=== PATIENT | male | born 1960 | race Caucasian/White ===

== ENCOUNTER → 2022-03-17 | Outpatient (CLI) | payer MEDICARE, SELFPAY ==
[2022-03-17 13:00] VITALS: PULSE 100; PULSE 80; PULSE 83; PULSE 92; PULSE 94; PULSE 97; PULSE 98; O2SAT 86; O2SAT 88; O2SAT 90; O2SAT 91; O2SAT 96; O2SAT 97; O2SAT 98
--- NOTE | 2022-03-17 13:05 | CPS ---
PATIENT STATES HE HAS OXYGEN AT HOME CURRENTLY FOR USE WITH SLEEP THROUGH [facility]. WALK TESTING BEGAN ON ROOM AIR. OXYGEN APPLIED AT 2LPM DURING TESTING, REMAINED ON 2LPM FOR DURATION OF TESTING. PT DID EXPERIENCE INCREASED WOB THROUGHOUT TESTING, CYANOSIS NOTED ON TIP OF PT NOSE WITH DECREASE SPO2 TO 86% RA, AT WHICH TIME HE WAS PLACED ON O2. REFERRING OFFICE NOTIFIED OF PT NEED FOR SUPPLEMENTAL O2 WITH AMBULATION.
--- NOTE | 2022-03-17 14:00 | PCM.PSN.6M ---
PSN 6 Minute Walk Test 6 Minute Walk Test 6 Minute Walk Test: 6 Minute Walk Test PSN:6-Minute Walk Test Start: 03/17/22 13:00 Freq: Status: Active Protocol: [id number] Document 03/17/22 13:00 [facility] (Rec: 03/17/22 13:08 [facility] [id number]) 6 Minute Walk Test Date Performed 03/17/22 Time Performed 12:30 Height 5 ft 7 in Weight: 47.627 kg Weight in Pounds 105.[address]: Yinka Villeda Assistive device used: None Pre-test Oxygen Delivery Method Room Air Pulse Ox (%) 91 Pulse Rate (60-100 beats/min) 83 Dyspnea James Scale (0-10) 0 1st minute Oxygen Delivery Method Room Air Pulse Ox (%) 90 Pulse Rate (60-100 beats/min) 98 Dyspnea James Scale (0-10) 1 Number of Rests Taken 0 2nd minute Oxygen Delivery Method Room Air Pulse Ox (%) 88 Pulse Rate (60-100 beats/min) 100 Dyspnea James Scale (0-10) 2 Number of Rests Taken 0 Reported Symptoms Increased Work of Breathing 3rd minute Oxygen Delivery Method Room Air Pulse Ox (%) 86 Pulse Rate (60-100 beats/min) 97 Dyspnea James Scale (0-10) 3 Number of Rests Taken 1 Reported Symptoms Cyanotic,Increased Work of Breathing 4th minute Oxygen Flow Rate (L/min) (L/min) 2 Oxygen Delivery Method Nasal Cannula Pulse Ox (%) 96 Pulse Rate (60-100 beats/min) 92 Dyspnea James Scale (0-10) 3 Number of Rests Taken 0 Reported Symptoms Increased Work of Breathing 5th minute Oxygen Flow Rate (L/min) (L/min) 2 Oxygen Delivery Method Nasal Cannula Pulse Ox (%) 96 Pulse Rate (60-100 beats/min) 94 Dyspnea James Scale (0-10) 3 Number of Rests Taken 0 Reported Symptoms Increased Work of Breathing 6th minute Oxygen Flow Rate (L/min) (L/min) 2 Oxygen Delivery Method Nasal Cannula Pulse Ox (%) 97 Pulse Rate (60-100 beats/min) 97 Dyspnea James Scale (0-10) 3 Number of Rests Taken 0 Reported Symptoms Increased Work of Breathing Post-test Oxygen Flow Rate (L/min) (L/min) 2 Oxygen Delivery Method Nasal Cannula Pulse Ox (%) 98 Pulse Rate (60-100 beats/min) 80 Dyspnea James Scale (0-10) 2 Reported Symptoms Increased Work of Breathing Full Laps Walked 13 Partial Lap, Number of Tiles Walked 17 Total Distance Walked (ft) 784 03/17/22 13:05 Cardiopulmonary Services by Hilda Grace PATIENT STATES HE HAS OXYGEN AT HOME CURRENTLY FOR USE WITH SLEEP THROUGH [facility]. WALK TESTING BEGAN ON ROOM AIR. OXYGEN APPLIED AT 2LPM DURING TESTING, REMAINED ON 2LPM FOR DURATION OF TESTING. PT DID EXPERIENCE INCREASED WOB THROUGHOUT TESTING, CYANOSIS NOTED ON TIP OF PT NOSE WITH DECREASE SPO2 TO 86% RA, AT WHICH TIME HE WAS PLACED ON O2. REFERRING OFFICE NOTIFIED OF PT NEED FOR SUPPLEMENTAL O2 WITH AMBULATION. Initialized on 03/17/22 13:05 - END OF NOTE Interpretation Interpretation: The patient was noted to be 91% on room air at rest. However, patient desaturated to 86% in the third minute and was placed on 2 L/min. The patient required 2 L to continue ambulation for a total of 6 minutes. In total, the patient traveled 784 feet over the course of 6 minutes with no assistive devices, but 1 break. No significant tachycardia was noted. These findings are consistent with a respiratory limitation exercise tolerance. Recommendations Recommendations: The patient requires no supplemental oxygen at rest, but should be using 2 L/min nasal cannula with any exertion.
== END | disposition home or self-care (01) ==
LOC: PSN 12:22
PROVIDERS: Visit Provider Internal Medicine Critical Care Medicine
DX: F17.210 Nicotine dependence, cigarettes, uncomplicated (principal)
CPT/HCPCS: 94618

== ENCOUNTER → 2022-03-22 | Outpatient (CLI) | payer MEDICARE, MEDICAID, SELFPAY ==
--- NOTE | 2022-03-24 09:46 | PFT ---
INTRODUCTION: The patient is a 61-year-old male that presents for pulmonary function studies secondary to a diagnosis of nicotine dependency. Respiratory therapy reported good patient effort. Bronchodilators were used during testing. INTERPRETATION: Forced expiration spirometry demonstrates the presence of a very severe large airways obstructive ventilatory defect. There was no significant response to aerosolized bronchodilators. Spirograms are of fair quality but do not plateau indicating slow emptying of the lungs. Body plus tomography was performed and revealed an elevated RV to 126% of predicted, indicative of underlying air trapping. Diffusing capacity by single breath CO is reduced at 53% of predicted. IMPRESSION: Irreversible very severe large airways obstructive ventilatory defect with associated air trapping and symmetric reduction in diffusing capacity.
== END | disposition home or self-care (01) ==
PROVIDERS: Visit Provider Internal Medicine Critical Care Medicine
DX: F17.210 Nicotine dependence, cigarettes, uncomplicated (principal)
CPT/HCPCS: 94060; 94726; 94729

== ENCOUNTER → 2022-08-05 | Outpatient (CLI) | payer MEDICARE, MEDICAID, SELFPAY ==
--- NOTE | 2022-08-05 14:44 | CT_ITS ---
EXAM: CT CHEST WITHOUT INTRAVENOUS CONTRAST CLINICAL INDICATION: Lung Nodule TECHNIQUE: Helically acquired images were obtained of the chest without intravenous contrast. This CT exam was performed using one or more of the following dose reduction techniques: automated exposure control, adjustment of the mA and/or kV according to patient size, and/or use of iterative reconstruction technique. RADIATION DOSE: Total DLP: 192.45 mGy-cm. COMPARISON: No relevant prior studies available. FINDINGS: LUNGS AND PLEURAL SPACES: Severe bilateral pulmonary emphysema is present with hyperinflation of lungs lobe and flattening of the hemidiaphragms. Within the right lower lobe laterally is 5.3 x 2.8 x 6.6 mm ovoid noncalcified subpleural nodule. Calcified granuloma noted within the right upper lobe parahilar region. No patchy airspace disease. No pneumothorax or pleural effusion. Minimal bilateral peribronchial cuffing is present indicating bronchial wall inflammation. HEART: Moderate coronary artery calcification is present. No significant pericardial effusion. Pruning of the peripheral pulmonary vascular markings due to pulmonary emphysema. MEDIASTINUM: Unremarkable. Esophagus is unremarkable. No hiatal hernia. No mediastinal adenopathy. THYROID: Unremarkable. No thyroid lesions. BONES/JOINTS: Thoracic degenerative spurring. Mild anterior wedging of the T12 vertebral body due to old compression fracture or congenital variant at this level. No acute osseous abnormality. No suspicious lytic or blastic abnormality. VASCULATURE: Thoracic aorta is mildly calcific and is normal in caliber. No aneurysm or intimal calcification is placement. INTRAPERITONEAL SPACE: Visualized portions of the liver, spleen and pancreas are unremarkable. No adrenal nodule is identified. Simple renal cysts are present and require no follow-up. 2.5 mm nonobstructing calculus noted within the upper pole collecting system of the right kidney. No pneumoperitoneum is noted. CT/Chest without Contrast IMPRESSION: Findings of severe pulmonary emphysema with mild associated bronchitis. No pneumonia. 6.6 mm noncalcified subpleural nodule laterally within the right lower lobe. Fleischner Society Guidelines (MacMahon, et al. Radiology 2017; 284(1):228-43) suggest the following. For high-risk patients initial follow-up chest CT at 6-12 months and if unchanged, 18-24 months. Small nonobstructing right renal calculus. Electronically Signed: Pipe Olea MD at 6:53 EDT ,
== END | disposition home or self-care (01) ==
LOC: CT 14:44
PROVIDERS: Referring Provider Internal Medicine Critical Care Medicine; Visit Provider Internal Medicine Critical Care Medicine
DX: R91.1 Solitary pulmonary nodule (principal)
CPT/HCPCS: 71250

== ENCOUNTER → 2024-10-16 | Outpatient (CLI) | payer MEDICARE, OTHER, SELFPAY ==
--- NOTE | 2024-10-16 10:30 | PET_ITS ---
PROCEDURE: PET/CT TUMOR BASE -THIGH INIT 10/16/2024 REASON FOR EXAM: 64 y/o M with SOLITARY PULMONARY NODULE TECHNIQUE: Following the intravenous administration of radionucleotide, image acquisition on a dedicated PET/CT unit was performed at one hour post injection. A preliminary CT study encompassing the Skull base, neck, chest, abdomen, pelvis, and proximal thighs was performed for purposes of attenuation correction and anatomic localization. The proximal thighs were also included. The patient's blood glucose level was 111 mg/dL (allowable range: 50-180 mg/dL). RADIOPHARMACEUTICAL: 13.08 mCi 18F-FDG (Fluorodeoxyglucose F18) IV was injected into he patient. RADIATION DOSE SUMMARY: Effective Dose: Approximately 7 mSv for a standard whole-body PET scan Organ Doses: Varies by organ, with higher doses typically to the bladder, liver, and brain COMPARISON: COMPARISON FROM CT, PET OR OTHER PERTINENT EXAMS: None provided.. FINDINGS: Physiologic uptake: There may be expected metabolic uptake within the brain, tongue and floor of the mouth and larynx/vocal cords, heart, angélica (many normal individuals have hilar uptake in less than 3 nodes with mildly avid hilar nodes less than 2.7 SUV), liver and spleen, system, and GI tract and symmetric muscle uptake. FDG AVID AND NON-AVID LESIONS. Reported avid SUV values (g/mL*) are maximum SUV. NECK: A hypermetabolic lymph node is seen to the right of the C1 vertebra, with SUV max of CHEST: Chest wall- There are no significant chest wall abnormalities. Axilla- There are no significant axillary abnormalities. Lung parenchyma- 3 right lung hypermetabolic nodules are seen, the largest in the most inferior location with SUV max of 9.8; The middle with SUV max of 6.9; And the more superior of the three with SUV max of 4.9. They all appear to be within the right upper lobe, although of the more inferior one likely abuts the minor fissure. A nonspecific subcentimeter focus of mild hypermetabolism is seen in the left upper lobe, superior to the left hilum, with SUV max of 3.4; cannot exclude the presence of malignancy, given this degree of hypermetabolism, however. Angélica and Mediastinum- A hypermetabolic right hilar lymph node is seen, with SUV max of 11.6. A left mediastinal subcentimeter hypermetabolic lymph node is seen, of the level superior to the left hilum, abutting the left mainstem bronchus, with SUV max of 2.9. No pleural effusion is seen. No pneumothorax is present. Pleura- There are no significant pleural abnormalities. ABDOMEN: [id number] aortic calcification is seen; no evidence of abdominal aortic aneurysm. Stomach- No significant abnormalities. Liver- No significant abnormalities. Spleen- No significant abnormalities. Pancrease- No significant abnormalities. Kidneys- Few small nonobstructive right mid and inferior renal calculi are seen multiple bilateral renal cysts are noted. No focus of hypermetabolic activity is seen. Bowel- Normal bowel activity. Spine- No significant abnormalities. PELVIS: Bowel- Normal physiologic bowel activity is identified. Masses- There are no pelvic masses. Bones- Degenerative changes of the spine are most prominent in the lumbar and especially cervical levels. With the use of bone window settings, there are no osteolytic or osteoblastic lesions. There are no FDG avid lesions within the visualized portion of the axial skeleton. PET/PET/CT Tumor Base -Thigh Init IMPRESSION: FDG avid- 1. Multiple right lung, right hilar, left mediastinal, and possibly also left u pper lobe hypermetabolic foci, concerning for the presence of malignancy. 2. Right upper neck paraspinal hypermetabolic lymph node, concerning for the pr esence of malignancy. Other: 1. Aortic calcification; no evidence of abdominal aortic aneurysm. 2. Degenerative changes of the spine, most prominent in the lumbar and especial ly cervical levels. Please note the low-dose CT scan was performed to facilitate PET image reconstr uction and anatomic localization and does not replace a diagnostic CT. Any diagnostic CT requested and performed at the time of the PET will be reported separately. Reading Location: [place] [id number]
--- OUTSIDE RECORDS SUMMARY | 2024-10-16 12:25 | XMS RPT_ITS | CCD ---
Author Organization [facility] Care Team Providers Care Executive Talent Acquisition Consultant Name Role Phone PIERCE COPELAND, JAYLA Morfin Primary Care Physician [phone] MIGEL GREENE DO Primary Care Physician Dr. Yinka Villeda Attending Provider Dr. Yinka Villeda Referring Provider Dr. Migel Greene Primary Care Provider [phone] Dr. Yinka Villeda Other Provider Dr. Luigi Riggins Attending Provider [phone] Migel Greene Referring Provider [phone] JC QUINTERO MIGEL E Attending Unavailable JC DO, MIGEL E Primary Care Unavailable JC DO, MIGEL E Attending Unavailable JC DO, MIGEL E Primary Care Unavailable JC DOMIGEL E Attending Unavailable GREENE DO, MIGEL E Primary Care Unavailable GREENE DO, MIGEL E Attending Unavailable GREENE DO, MIGEL E Primary Care Unavailable Millicent Paredes NP Attending Unavailable Migel Greene Referring Unavailable Migel Greene Primary Care Unavailable Migel Greene Primary Care Unavailable Yinka Villeda Attending Unavailable Migel Greene Referring Unavailable GREENE DO, MIGEL E Primary Care Unavailable GREENE DO, MIGEL E Attending Unavailable GREENE DO, MIGEL E Attending Unavailable GREENE DO, MIGEL E Primary Care Unavailable GREENE DO, MIGEL E Attending Unavailable GREENE DO, MIGEL E Primary Care Unavailable JC DO, MIGEL E Attending Unavailable GREENE DO, MIGEL E Primary Care Unavailable Allergies Allergy Classification Reported Allergen(s) Allergy Type Date of Onset Reaction(s) Facility (10 sources) Amoxicillin / Clavulanate; Translations: [amoxicillin-clav ulanate] Drug Allergy Rash [facility] Medications Current Medications Medication Drug Class(es) Dates Sig (Normalized) Sig (Original) albuterol 0.83 mg/ml inhalation solution (15 sources) beta2-Adrenergic Agonist Start: 05-02-2024 albuterol 2.5 mg/3 mL (0.083%) inhalation solution Dose : 2.5 mg = 3 mL, Inhalation, QID, Use every 4 hours as needed extreme shortness of breath., # 1,080 mL, 3 Refill(s), Pharmacy: [facility], 172, cm, 05/01/24 15:00:00 EST, Height, kg, 05/01/24 15:00:00 EST, Dosing Weight Start Date: 05/02/24 Status: Ordered Quantity: 1080.0 Unit: mL Repeat number: 4 Start: 04-29-2023 albuterol 2.5 mg/3 mL (0.083%) inhalation solution Dose : 2.5 mg = 3 mL, Inhalation, QID, Use every 4 hours as needed extreme shortness of breath., # 1,080 mL, 3 Refill(s), Pharmacy: [facility], 172, cm, 10/12/22 14:27:00 EDT, Height, kg, 04/15/23 13:56:00 EST, Dosing Weight Start Date: 04/29/23 Status: Ordered Start: 04-01-2022 take 1 puff(s) by in halation every four hours Albuterol Sulfate Active 2 PUFF INHALATION Q4H 8.5 April 01, 2022 1:00am administer with spacer Start: 02-25-2022 Albuterol Sulf ate Active 1.25 MG continuous nebulization EVERY 6 HOURS February 25, 2022 1:00am Start: 10-16-2021 albuterol 2.5 mg/3 mL (0.083%) inhalation solution Dose : 2.5 mg = 3 mL, Inhalation, QID, Use every 4 hours as needed extreme shortness of breath., # 120 EA, 10 Refill(s), Pharmacy: [facility], 172, cm, 10/16/21 12:35:00 EDT, Height, kg, 10/16/21 12:35:00 EDT, Dosing Weight Start Date: 10/16/21 Status: Ordered Start: 07-23-2020 albuterol 2.5 mg/3 mL (0.083%) inhalation solution Dose : 2.5 mg = 3 mL, Inhalation, QID, Use every 4 hours as needed extreme shortness of breath., # 120 EA, 10 Refill(s), 173.5, cm, 07/23/20 10:14:00 EDT, Height, kg, 07/23/20 10:14:00 EDT, Dosing Weight Start Date: 07/23/20 Status: Ordered Start: 07-23-2020 albuterol 2.5 mg/3 mL (0.083%) inhalation solution Dose : 2.5 mg = 3 mL, Inhalation, QID, Use every 4 hours as needed extreme shortness of breath., # 120 EA, 10 Refill(s), 173.5, cm, 07/23/20 10:14:00 EDT, Height, kg, 07/23/20 10:14:00 EDT, Dosing Weight Start Date: 07/23/20 Status: Ordered 120 actuat albuterol 0.1 mg/actuat / ipratropium bromide 0.02 mg/actuat inhalation spray (12 sources) Anticholinergic, beta2-Adrenergic Agonist Start: 11-15-2023 take 1 dose by inhalation every four hours Combivent Respimat CFC free 20 mcg-100 mcg/inh inhalation aerosol Dose = 1 puff(s), Inhalation, q4hr, may take additional inhalations as required, not to exceed 10 in 24 hours, # 12 gram(s), 3 Refill(s), Pharmacy: [facility], [place], [place], 11/15/23 15:38:00 EDT, Height, kg, 11/15/23 15:28:00 EDT, Dosing Weight Start Date: 11/15/23 Status: Ordered Quantity: 12.0 Unit: g Repeat number: 4 Start: 04-29-2023 take 1 dose by inhal ation every four hours Combivent Respimat CFC free 20 mcg-100 mcg/inh inhalation aerosol Dose = 1 puff(s), Inhalation, q4hr, may take additional inhalations as required, not to exceed 10 in 24 hours, # 12 gram(s), 3 Refill(s), Pharmacy: [facility], 172, [place], 10/12/22 14:27:00 EDT, Height, kg, 04/15/23 13:56:00 EST, Dosing Weight Start Date: 04/29/23 Status: Ordered Start: 04-15-2023 take 1 dose by inhal ation every four hours Combivent Respimat CFC free 20 mcg-100 mcg/inh inhalation aerosol Dose = 1 puff(s), Inhalation, q4hr, may take additional inhalations as required, not to exceed 10 in 24 hours, # 1 EA, 0 Refill(s), Pharmacy: [facility], 172, cm, 10/12/22 14:27:00 EDT, Height, kg, 04/15/23 13:56:00 EST, Dosing Weight Start Date: 04/15/23 Status: Ordered Start: 10-16-2021 take 20-100 ug by in halation every four hours Ipratropium-Albuterol (Combivent Respimat) 20-100 mcg/actuation mist Active 1 PUFF INHALATION Q4H February 25, 2022 1:00am Start: 01-22-2021 take 1 dose by inhal ation every four hours Combivent Respimat CFC free 20 mcg-100 mcg/inh inhalation aerosol Dose = 1 puff(s), Inhalation, q4hr, may take additional inhalations as required, not to exceed 10 in 24 hours, # 1 EA, 11 Refill(s), Pharmacy: [facility], 173.5, cm, 01/22/21 10:15:00 EST, Height, kg, 01/22/21 10:15:00 EST, Dosing Weight Start Date: 01/22/21 Status: Ordered albuterol MDI (90 mcg/inh) CFC free inhalation aerosol (5 sources) Start: 11-15-2023 take 1 puff(s) by inhalation every four hours as needed for wheezing albuterol MDI (90 mcg/inh) CFC free inhalation aerosol 1 puff(s), Inhalation, q4h, PRN as needed for wheezing, # 8.5 gram(s), 3 Refill(s), Pharmacy: [facility], 172, [place], 11/15/23 15:38:00 EDT, Height, kg, 11/15/23 15:28:00 EDT, Dosing Weight Start Date: 11/15/23 Status: Ordered Quantity: 8.5 Unit: g Repeat number: 4 Start: 11-15-2023 take 1 puff(s) by in halation every four hours as needed for wheezing albuterol MDI (90 mcg/inh) CFC free inhalation aerosol 1 puff(s), Inhalation, q4h, PRN as needed for wheezing, # 8.5 gram(s), 3 Refill(s), Pharmacy: [facility], 172, cm, 11/15/23 15:38:00 EDT, Height, kg, 11/15/23 15:28:00 EDT, Dosing Weight Start Date: 11/15/23 Status: Ordered Start: 09-05-2023 take 1 puff(s) by in halation every four hours as needed for wheezing albuterol MDI (90 mcg/inh) CFC free inhalation aerosol 1 puff(s), Inhalation, q4h, PRN as needed for wheezing, # 8.5 gram(s), 3 Refill(s), Pharmacy: [facility], 172, cm, 07/11/23 12:57:00 EDT, Height, kg, 07/11/23 12:57:00 EDT, Dosing Weight Start Date: 09/05/23 Status: Ordered Start: 04-29-2023 take 1 puff(s) by in halation every four hours as needed for wheezing albuterol MDI (90 mcg/inh) CFC free inhalation aerosol 1 puff(s), Inhalation, q4h, PRN as needed for wheezing, # 8.5 gram(s), 3 Refill(s), Pharmacy: [facility], 172, cm, 10/12/22 14:27:00 EDT, Height, kg, 04/15/23 13:56:00 EST, Dosing Weight Start Date: 04/29/23 Status: Ordered Azithromycin 5 Day Dose Pack 250 mg oral tablet (1 source) Start: 08-01-2024 End: 08-06-2024 Azithromycin 5 Day Dose Pack 250 mg oral tablet Take two (2) tablets day 1-then one (1) tablet, Oral, Daily, X 5 day(s), # 6 tab(s), 0 Refill(s), 08/06/24 2:27:00 PM EDT, Pharmacy: [facility], COPD with exacerbation Nocturnal oxygen desaturation, 172.5, cm, 08/01/24 13:53:00 EDT, Height, 59.6, kg, 08/01/24 13:53:00 EDT, Dosing Weight Start Date: 08/01/24 Stop Date: 08/06/24 Status: Ordered Quantity: 6.0 Unit: tab(s) Repeat number: 1 Indications: Chronic obstructive pulmonary disease with (acute) exacerbation; Idiopathic sleep related nonobstructive alveolar hypoventilation; benzonatate 100 mg oral capsule (1 source) Non-narcotic Antitussive Start: 04-15-2023 End: 04-25-2023 take 1 capsule by mouth once Tessalon Perles 100 mg oral capsule Dose : 100 mg = 1 cap(s), Oral, TID, may take up to 200mg per dose if needed, X 10 day(s), # 30 cap(s), 0 Refill(s), 04/25/23 2:35:00 PM EST, Pharmacy: [facility], COPD - Chronic obstructive pulmonary disease, 172, cm, 10/12/22 14:27:00 EDT, Height, kg, 04/15/23 13:56:00 EST, Dosing Weight Start Date: 04/15/23 Stop Date: 04/25/23 Status: Ordered 120 actuat budesonide 0.08 mg/actuat / formoterol fumarate 0.0045 mg/actuat metered dose inhaler (3 sources) Corticosteroid, beta2-Adrenergic Agonist Start: 02-25-2022 Budesonide-Formoterol (Symbicort) 80-4.5 mcg/actuation HFA aerosol inhaler Active 2 INH INHALATION TWICE A DAY February 25, 2022 1:00am budesonide-formote rol 160 mcg-4.5 mcg/inh Inhaler (6 sources) Start: 09-04-2024 take 1 dose by inhalation twice daily budesonide-formoterol 160 mcg-4.5 mcg/inh Inhaler Dose = 2 puff(s), Inhalation, BID, # 10.2 gram(s), 2 Refill(s), Pharmacy: [facility], 172.5, cm, 08/01/24 13:53:00 EDT, Height, kg, 08/01/24 13:53:00 EDT, Dosing Weight Start Date: 09/04/24 Status: Ordered Quantity: 10.2 Unit: g Repeat number: 3 Start: 05-04-2024 take 1 dose by inhal ation twice daily budesonide-formoterol 160 mcg-4.5 mcg/inh Inhaler Dose = 2 puff(s), Inhalation, BID, # 10.2 gram(s), 2 Refill(s), Pharmacy: [facility], 172, cm, 05/01/24 15:00:00 EST, Height, kg, 05/01/24 15:00:00 EST, Dosing Weight Start Date: 05/04/24 Status: Ordered Quantity: 10.2 Unit: g Repeat number: 3 Start: 11-15-2023 take 1 dose by inhal ation twice daily budesonide-formoterol 160 mcg-4.5 mcg/inh Inhaler Dose = 2 puff(s), Inhalation, BID, # 10.2 gram(s), 3 Refill(s), Pharmacy: [facility], 172, cm, 11/15/23 15:38:00 EDT, Height, kg, 11/15/23 15:28:00 EDT, Dosing Weight Start Date: 11/15/23 Status: Ordered Start: 08-25-2023 take 1 dose by inhal ation twice daily budesonide-formoterol 160 mcg-4.5 mcg/inh Inhaler Dose = 2 puff(s), Inhalation, BID, # 10.2 gram(s), 3 Refill(s), Pharmacy: [facility], 172, cm, 07/11/23 12:57:00 EDT, Height, kg, 07/11/23 12:57:00 EDT, Dosing Weight Start Date: 08/25/23 Status: Ordered Start: 04-29-2023 take 1 dose by inhal ation twice daily budesonide-formoterol 160 mcg-4.5 mcg/inh Inhaler Dose = 2 puff(s), Inhalation, BID, # 10.2 gram(s), 3 Refill(s), Pharmacy: [facility], 172, cm, 10/12/22 14:27:00 EDT, Height, kg, 04/15/23 13:56:00 EST, Dosing Weight Start Date: 04/29/23 Status: Ordered Start: 04-15-2023 take 1 dose by inhal ation twice daily budesonide-formoterol 160 mcg-4.5 mcg/inh Inhaler Dose = 2 puff(s), Inhalation, BID, # 1 EA, 0 Refill(s), Pharmacy: [facility], 172, cm, 10/12/22 14:27:00 EDT, Height, kg, 04/15/23 13:56:00 EST, Dosing Weight Start Date: 04/15/23 Status: Ordered Combivent Respimat CFC free 20 mcg-100 mcg/inh inhalation aerosol (1 source) Start: 01-22-2021 take 1 dose by inhalation every four hours Combivent Respimat CFC free 20 mcg-100 mcg/inh inhalation aerosol Dose = 1 puff(s), Inhalation, q4hr, may take additional inhalations as required, not to exceed 10 in 24 hours, # 1 EA, 11 Refill(s), Pharmacy: [facility], 173.5, cm, 01/22/21 10:15:00 EST, Height, kg, 01/22/21 10:15:00 EST, Dosing Weight Start Date: 01/22/21 Status: Ordered levoFLOXacin 500 mg oral tablet (1 source) Quinolone Antimicrobial Start: 04-15-2023 End: 04-22-2023 levoFLOXacin 500 mg oral tablet Dose : 500 mg = 1 tab(s), Oral, q24h, X 7 day(s), # 7 tab(s), 0 Refill(s), 04/22/23 2:35:00 PM EST, Pharmacy: [facility], COPD - Chronic obstructive pulmonary disease, 172, cm, 10/12/22 14:27:00 EDT, Height, 45.7, kg, 04/15/23 13:56:00 EST, Dosing Weight Start Date: 04/15/23 Stop Date: 04/22/23 Status: Ordered loratadine 10 mg oral tablet (1 source) Start: 03-25-2022 End: 04-09-2022 Multivitamin preparation (7 sources) Start: 10-16-2021 take 1 tablet by mouth once daily Multivitamin Dose = 1 tab(s), Oral, Daily, 0 Refill(s) Start Date: 10/16/21 Status: Ordered Repeat number: 1 Start: 10-16-2021 take 1 tablet by nori th once daily Multivitamin Dose = 1 tab(s), Oral, Daily, 0 Refill(s) Start Date: 10/16/21 Status: Ordered naproxen 375 mg delayed release oral tablet (12 sources) Nonsteroidal Anti-inflammatory Drug Start: 05-22-2024 naproxen 375 mg o ral delayed release tablet Dose : 375 mg = 1 tab(s), Oral, BID, PRN Pain, # 180 tab(s), 1 Refill(s), Pharmacy: [facility], 172, [place], 05/01/24 15:00:00 EST, Height, kg, 05/01/24 15:00:00 EST, Dosing Weight Start Date: 05/22/24 Status: Ordered Quantity: 180.0 Unit: tab(s) Repeat number: 2 Start: 04-29-2023 naproxen 375 m g oral delayed release tablet Dose : 375 mg = 1 tab(s), Oral, BID, PRN Pain, # 180 tab(s), 3 Refill(s), Pharmacy: [facility], 172, cm, 10/12/22 14:27:00 EDT, Height, kg, 04/15/23 13:56:00 EST, Dosing Weight Start Date: 04/29/23 Status: Ordered Start: 02-25-2022 take 750 mg by mouth twice daily Naproxen Active 750 MG PO TWICE A DAY February 25, 2022 1:00am Start: 02-02-2019 naproxen 375 m g oral delayed release tablet Dose : 375 mg = 1 tab(s), Oral, BID, PRN Pain, # 60 tab(s), 3 Refill(s), Pharmacy: [facility] Start Date: 02/02/19 Status: Ordered naproxen 375 mg oral delayed release tablet (1 source) Start: 02-02-2019 naproxen 375 m g oral delayed release tablet Dose : 375 mg = 1 tab(s), Oral, BID, PRN Pain, # 60 tab(s), 3 Refill(s), Pharmacy: [facility] Start Date: 02/02/19 Status: Ordered nicotine 2 mg oral lozenge (1 source) Cholinergic Nicotinic Agonist Start: 11-15-2023 nicotine 2 mg oral transmucosal lozenge 2 mg Dose = 1 lozenge(s), Transmucosal, q1h, PRN as needed for smoking cessation, as directed on package labeling, # 100 lozenge(s), 0 Refill(s), Pharmacy: [facility], Lung nodules on CT 10/2023, New 7 mm right midlung nodular opacity. 3 month LDCT advised. COPD - Chronic obstructive pulmonary disease, 172, cm, 11/15/23 15:38:00 EDT, Height, kg, 11/15/23 15:28:00 EDT, Dosing Weight Start Date: 11/15/23 Status: Ordered Potassium Acetate (3 sources) Start: 11-15-2023 potassium acet ate 0 Refill(s) Start Date: 11/15/23 Status: Ordered Repeat number: 1 Start: 11-15-2023 potassium acet ate 0 Refill(s) Start Date: 11/15/23 Status: Ordered predniSONE 20 mg oral tablet (2 sources) Start: 04-15-2023 End: 04-20-2023 predniSONE 20 mg oral tablet Dose : 40 mg = 2 tab(s), Oral, qDay, X 5 day(s), # 10 tab(s), 0 Refill(s), 04/20/23 2:35:00 PM EST, Pharmacy: [facility], COPD - Chronic obstructive pulmonary disease, 172, cm, 10/12/22 14:27:00 EDT, Height, kg, 04/15/23 13:56:00 EST, Dosing Weight Start Date: 04/15/23 Stop Date: 04/20/23 Status: Ordered Start: 03-25-2022 take 4 tablets by mo uth once daily, then take 3 tablets by mouth once daily, then take 2 tablets by mouth once daily, then take 1 tablet by mouth once daily sodium chloride 30 mg/ml inhalation solution (3 sources) Start: 11-15-2023 sodium chlorid e 3% inhalation solution 0.12 gram(s) Dose = 4 mL, Inhalation, QID, Best to use for mucus issues, # 160 mL, 1 Refill(s), Pharmacy: [facility], COPD - Chronic obstructive pulmonary disease, 172, cm, 11/15/23 15:38:00 EDT, Height, kg, 11/15/23 15:28:00 EDT, Dosing Weight Start Date: 11/15/23 Status: Ordered Quantity: 160.0 Unit: mL Repeat number: 2 Indications: Chronic obstructive pulmonary disease, unspecified; Symbicort 80 mcg-4.5 mcg/inh Inhaler (4 sources) Start: 10-16-2021 take 1 dose by mouth twice daily Symbicort 80 mcg-4.5 mcg/inh Inhaler Dose = 2 puff(s), Inhalation, BID, Rinse mouth out with water after each use., # 10.2 gram(s), 11 Refill(s), Pharmacy: [facility], 172, cm, 10/16/21 12:35:00 EDT, Height, kg, 10/16/21 12:35:00 EDT, Dosing Weight Start Date: 10/16/21 Status: Ordered Start: 01-22-2021 take 1 dose by mouth twice daily Symbicort 80 mcg-4.5 mcg/inh Inhaler Dose = 2 puff(s), Inhalation, BID, Rinse mouth out with water after each use., # 10.2 gram(s), 11 Refill(s), Pharmacy: [facility], 173.5, cm, 01/22/21 10:15:00 EST, Height, kg, 01/22/21 10:15:00 EST, Dosing Weight Start Date: 01/22/21 Status: Ordered triamcinolone acetonide 5 mg/ml topical cream (1 source) Corticosteroid Start: 03-25-2022 End: 04-08-2022 triamcinolone 0.5% topical cream Apply 1 ramona, Topical, BID, X 14 day(s), # 60 gram(s), 0 Refill(s), Pharmacy: [facility], Cream, 172, cm, 03/25/22 14:52:00 EST, Height, 46.6 Start Date: 03/25/22 Stop Date: 04/08/22 Status: Ordered Vitamin D3 (3 sources) Start: 11-15-2023 Vitamin D3 qDa y, 0 Refill(s) Start Date: 11/15/23 Status: Ordered Repeat number: 1 Start: 11-15-2023 Vitamin D3 qDa y, 0 Refill(s) Start Date: 11/15/23 Status: Ordered Zinc (3 sources) Start: 11-15-2023 Zinc 0 Refill( s) Start Date: 11/15/23 Status: Ordered Repeat number: 1 Start: 11-15-2023 Zinc 0 Refill( s) Start Date: 11/15/23 Status: Ordered Problems Active Problems Problem Classification Problem Date Documented Da te Episodic/Chronic Allergic reactions (8 sources) Urticaria; Translations: [Urticaria, unspecified] Episodic Chronic obstructive pulmonary disease and bronchiectasis (15 sources) Chronic obstructive lung disease; Translations: [Chronic obstructive pulmonary disease, unspecified] Onset: 01-13-2023 11-17-2018 Chronic Coronary atherosclerosis and other heart disease (2 sources) Calcification of coronary artery 08-01-2024 Chronic Deficiency and other anemia (1 source) Anemia; Translations: [Anemia, unspecified] Episodic Deficiency and other anemia (2 sources) Anemia, unspecified; Translations: [Anemia, unspecified] Onset: 08-01-2024 Episodic Fluid and electrolyte disorders (6 sources) Hyperkalemia 10-12-2022 Episodic Other lower respiratory disease (7 sources) Desaturation of blood 10-16-2021 Episodic Other lower respiratory disease (3 sources) Nodule of lung; Translations: [Solitary pulmonary nodule] 02-25-2022 Episodic Other lower respiratory disease (6 sources) Multiple nodules of lung 05-12-2022 Episodic Comment on above: 01/2024 study: Enlar ging irregular nodule which appears to abut both the right minor fissure and right major fissure. The lesion appears to cross both fissure planes. There is also a new irregular nodular opacity which is developed in a cystic airspace in the right parahilar region/right upper lobe. PET-CT advised Other nutritional; endocrine; and metabolic disorders (6 sources) Adult failure to thrive syndrome 10-12-2022 Episodic Other nutritional; endocrine; and metabolic disorders (6 sources) Body mass index less than 20 10-12-2022 Episodic Other screening for suspected conditions (not mental disorders or infectious disease) (6 sources) CT of chest abnormal 05-12-2022 Episodic Residual codes; unclassified (8 sources) Not for resuscitation 10-12-2022 Episodic Respiratory failure; insufficiency; arrest (adult) (12 sources) Dependence on supplemental oxygen; Translations: [Chronic hypoxemic respiratory failure] Onset: 01-13-2023 10-16-2021 Chronic Spondylosis; intervertebral disc disorders; other back problems (20 sources) Low back pain; Translations: [Sciatica] 11-17-2018 Episodic Substance-related disorders (7 sources) Nicotine dependence; Translations: [Nicotine dependence, cigarettes, uncomplicated] Onset: 01-13-2023 02-25-2022 Chronic Unclassified (7 sources) Colon cancer screening declined 10-16-2021 Unclassified (7 sources) Pneumococcal vaccination declined 10-16-2021 Unclassified (2 sources) Active Durable Power of Ortho/Prosthetic Aide for Healthcare 08-01-2024 Past or Other Problems Problem Classification Problem Date Documented Da te Episodic/Chronic Other lower respiratory disease (4 sources) Solitary pulmonary nodule; Translations: [Solitary pulmonary nodule] Onset: 01-13-2023 02-25-2022 Episodic Other nutritional; endocrine; and metabolic disorders (2 sources) Adult failure to thrive; Translations: [Adult failure to thrive] Onset: 04-15-2023 Episodic Other nutritional; endocrine; and metabolic disorders (2 sources) Body mass index (BMI) 19.9 or less, adult; Translations: [Body mass index [BMI] 19.9 or less, adult] Onset: 04-15-2023 Episodic Results Test Name Value Interpretation Reference Range Facility CT THORAX W/O CONTRASTon CT THORAX W/O CONTRAST ORIGINAL EXAMINATION: CT OF THE CHEST WITHOUT CONTRAST 09/24/2024 4:00 pm TECHNIQUE: CT of the chest was performed without the administration of intravenous contrast. Multiplanar reformatted images are provided for review. Automated exposure control, iterative reconstruction, and/or weight based adjustment of the mA/kV was utilized to reduce the radiation dose to as low as reasonably achievable. COMPARISON: CT thorax 01/23/2024 HISTORY: ORDERING SYSTEM PROVIDED HISTORY: Reason for Exam: Lung nodules, multiple Lung nodules, multiple. No hx of cx. FINDINGS: The heart is normal in size. No pericardial thickening or effusion. Coronary atherosclerosis. The main pulmonary arteries normal in caliber. The aorta is nonaneurysmal with mild atherosclerosis. Thyroid is unremarkable. No axillary, supraclavicular, or left hilar adenopathy within the confines of a noncontrast exam. Slight increase in size of a now 1.3 cm precarinal lymph node (series 2, image 36), previously 1 cm. There is a suspected 1.5 cm right hilar lymph node (series 2, image 39), previously 1 cm. Likely inspissated mucus within the trachea posteriorly (series 4, image 13) and right mainstem bronchus. No left main bronchial lesion. No pneumothorax or pleural effusion. Scattered pleuroparenchymal scarring. Severe emphysema. No focal consolidation or pulmonary edema. Increasing size of the now 1.5 x 1.1 cm (greatest axial dimensions, series 4, image 42) right mid lung spiculated nodule centered headache pneumatocele/air-fill ed cyst, previously measuring approximately 1.2 x 0.6 cm. This lesion extends across the right minor and right major fissure (series 602, image 90). Stable 5 mm nodule in the lateral right lower lobe (series 4, image 58). Stable 4 mm nodule within the superior right lower lobe (series 4, image 37). No new nodule. Partially visualized bilateral simple appearing renal cysts. Otherwise, the visualized upper abdomen is noncontributory. No acute osseous abnormality. No suspicious osseous lesion. Degenerative changes of the spine. IMPRESSION: Continued enlargement of the spiculated right mid lung nodule centered at the juncture of the right main and minor fissures with extension beyond the fissure planes. This is malignancy until proven otherwise. Recommend PET-CT and tissue sampling. Enlargement of right hilar and precarinal lymph nodes, highly suspicious for metastatic disease. I have personally reviewed the images of this examination and agree with the resident's findings and interpretation. Interpreted by: Joel Hampton MD Preliminary Report By: Obie Aguirre Electronically signed By Joel Hampton MD Dictated Date: 09/25/2024 9:45:50 AM Prelim Date: 09/25/2024 10:17:04 AM Sign Date: 09/25/2024 10:17:04 AM Ordering Provider: MIGEL GREENE [facility] 08-02-2024 Hep C Ab Non-Reactive Normal Non-Reactive [facility] Comment on above: Performed By: #### A 1C, LIPID, TSHR, CMP, ADIFF, PSA, CBC, ANEU, GFR #### [place] [id number] #### B12, HCV1 #### [place] [id number] Hep C Ab Int See Interp Normal [facility] Comment on above: Result Comment: Clinical Interpretation: Nonreactive: Samples with a value < 0.80 are considered nonreactive (negative) for antibodies to HCV. A negative test result does not exclude the possibility of exposure to or infection with HCV. HCV antibodies may be undetectable in some stages of the infection and in some clinical conditions. Performed By: #### A 1C, LIPID, TSHR, CMP, ADIFF, PSA, CBC, ANEU, GFR #### [place] [id number] #### B12, HCV1 #### [place] [address] .Auto Diffon 08-01-2024 Basophil, Absolute 0.1 10 3/mcL Normal 0.0-0.3 [facility] Comment on above: Performed By: #### A 1C, LIPID, TSHR, CMP, ADIFF, PSA, CBC, ANEU, GFR #### [place] [address] #### B12, HCV1 #### [place] [address] Basophils/100 WBC (Bld) 0.5 % Normal 0.0-2.5 [facility] Comment on above: Performed By: #### A 1C, LIPID, TSHR, CMP, ADIFF, PSA, CBC, ANEU, GFR #### [place] [address] #### B12, HCV1 #### [place] [address] Eosinophil, Absolute 0.3 10 3/mcL Normal 0.0-0.7 [facility] Comment on above: Performed By: #### A 1C, LIPID, TSHR, CMP, ADIFF, PSA, CBC, ANEU, GFR #### [address] [address] #### B12, HCV1 #### [address] [address] Eosinophils/100 WBC (Bld) 3.0 % Normal 0.0-6.0 [facility] Comment on above: Performed By: #### A 1C, LIPID, TSHR, CMP, ADIFF, PSA, CBC, ANEU, GFR #### [address] [address] #### B12, HCV1 #### [address] [address] Lymphocyte, Absolute 1.2 10 3/mcL Normal 0.9-4.3 [facility] Comment on above: Performed By: #### A 1C, LIPID, TSHR, CMP, ADIFF, PSA, CBC, ANEU, GFR #### [address] [address] #### B12, HCV1 #### [address] [address] Lymphocytes/100 WBC (Bld) 12.7 % Low 20.0-40.0 [facility] Comment on above: Performed By: #### A 1C, LIPID, TSHR, CMP, ADIFF, PSA, CBC, ANEU, GFR #### [address] [address] #### B12, HCV1 #### [address] [address] Monocyte, Absolute 0.8 10 3/mcL Normal 0.1-1.4 [facility] Comment on above: Performed By: #### A 1C, LIPID, TSHR, CMP, ADIFF, PSA, CBC, ANEU, GFR #### [address] [address] #### B12, HCV1 #### [address] [address] Monocytes/100 WBC (Bld) 8.7 % Normal 2.0-13.0 [facility] Comment on above: Performed By: #### A 1C, LIPID, TSHR, CMP, ADIFF, PSA, CBC, ANEU, GFR #### [address] [address] #### B12, HCV1 #### [address] [address] Neutrophils/100 WBC (Bld) 75.1 % High 50.0-75.0 [facility] Comment on above: Performed By: #### A 1C, LIPID, TSHR, CMP, ADIFF, PSA, CBC, ANEU, GFR #### [address] [address] #### B12, HCV1 #### [address] [address] .GFRon 08-01-2024 Estimated Glomerular Filtration Rate 100 ml/min/1.73sqm Normal [facility] Comment on above: Result Comment: Stages of Chronic Kidney Disease (CKD) Stage Description eGFR(ml/min/1.73 sq.m.) CKD 1 Normal kidney function or >=90 normal kindney function with possible kidney damage (ex. Proteinuria) CKD 2 Kidney damage with mild loss 60-89 of kidney function CKD 3a Mild to moderate loss of kidney 45-59 function CKD 3b Moderate to severe loss of 30-44 of kindey function CKD 4 Severe loss of kidney function 15-29 CKD 5 Kidney failure <15 Note: (go live 2024) the eGFR calculation was updated to the 2020 CKD-EPI creatinine equation without a race factor to calculate the eGFR results. Performed By: #### A 1C, LIPID, TSHR, CMP, ADIFF, PSA, CBC, ANEU, GFR #### [place] [id number] [place], [place] [address] #### B12, HCV1 #### [address] [address] .NEUABSon 08-01-2024 Neutrophil, Absolute 7.2 10 3/mcL Normal 2.3-8.1 [facility] Comment on above: Performed By: #### A 1C, LIPID, TSHR, CMP, ADIFF, PSA, CBC, ANEU, GFR #### [place] [address] #### B12, HCV1 #### [place] [address] A1Con 08-01-2024 Glucose [Mass/Vol] 117 mg/dL Normal [facility] Comment on above: Result Comment: Yoli mated Average Glucose calculated by equation ((28.7xA1C)-46.7) Estimated average glucose (eAG) is a calculated value from Hemoglobin A1C and is kiosk sales representative of the average blood glucose level in the last 2-3 month period. Normal range: less than 114 mg/dL Performed By: #### A 1C, LIPID, TSHR, CMP, ADIFF, PSA, CBC, ANEU, GFR #### [place] [address] #### B12, HCV1 #### [place] [address] HbA1c (Bld) [Mass fraction] 5.7 % Normal 4.3-6.4 [facility] Comment on above: Performed By: #### A 1C, LIPID, TSHR, CMP, ADIFF, PSA, CBC, ANEU, GFR #### [place] [address] #### B12, HCV1 #### [place] [address] B12on 08-01-2024 Cobalamin (Vitamin B12) [Mass/Vol] 594 pg/mL Normal 211-911 [facility] Comment on above: Performed By: #### A 1C, LIPID, TSHR, CMP, ADIFF, PSA, CBC, ANEU, GFR #### [place] [address] #### B12, HCV1 #### [place] [address] CBCon 08-01-2024 Erythrocyte distribution width (RBC) [Ratio] 14.1 % Normal 11.5-15.5 [facility] Comment on above: Performed By: #### A 1C, LIPID, TSHR, CMP, ADIFF, PSA, CBC, ANEU, GFR #### [place] [address] #### B12, HCV1 #### [place] [address] Hematocrit (Bld) [Volume fraction] 36.5 % Low 40.0-52.0 [facility] Comment on above: Performed By: #### A 1C, LIPID, TSHR, CMP, ADIFF, PSA, CBC, ANEU, GFR #### [place] [address] #### B12, HCV1 #### [place] [address] Hgb 12.4 G/dL Low 13.0-17.5 [facility] Comment on above: Performed By: #### A 1C, LIPID, TSHR, CMP, ADIFF, PSA, CBC, ANEU, GFR #### [place] [address] #### B12, HCV1 #### [place] [address] MCH (RBC) [Entitic mass] 31.0 pg Normal 27.0-33.0 [facility] Comment on above: Performed By: #### A 1C, LIPID, TSHR, CMP, ADIFF, PSA, CBC, ANEU, GFR #### [place] [address] #### B12, HCV1 #### [place] [address] MCHC 33.9 G/dL Normal 32.0-36.0 [facility] Comment on above: Performed By: #### A 1C, LIPID, TSHR, CMP, ADIFF, PSA, CBC, ANEU, GFR #### [place] [address] #### B12, HCV1 #### [place] [address] MCV (RBC) [Entitic vol] 91.6 fL Normal 81.0-100.0 [facility] Comment on above: Performed By: #### A 1C, LIPID, TSHR, CMP, ADIFF, PSA, CBC, ANEU, GFR #### [address] [address] #### B12, HCV1 #### [address] [address] Platelet 319 10 3/mcL Normal 150-450 [facility] Comment on above: Performed By: #### A 1C, LIPID, TSHR, CMP, ADIFF, PSA, CBC, ANEU, GFR #### [address] [address] #### B12, HCV1 #### [place] [address] Platelet mean volume (Bld) [Entitic vol] 8.6 fL Normal 6.4-10.5 [facility] Comment on above: Performed By: #### A 1C, LIPID, TSHR, CMP, ADIFF, PSA, CBC, ANEU, GFR #### [address] [address] #### B12, HCV1 #### [place] [address] RBC 3.98 10 6/mcL Low 4.50-6.00 [facility] Comment on above: Performed By: #### A 1C, LIPID, TSHR, CMP, ADIFF, PSA, CBC, ANEU, GFR #### [address] [address] #### B12, HCV1 #### [place] [address] WBC 9.6 10 3/mcL Normal 4.5-10.8 [facility] Comment on above: Performed By: #### A 1C, LIPID, TSHR, CMP, ADIFF, PSA, CBC, ANEU, GFR #### [address] [address] #### B12, HCV1 #### [place] [address] CMPon 08-01-2024 Albumin Level 3.5 G/dL Normal 3.4-4.8 [facility] Comment on above: Performed By: #### A 1C, LIPID, TSHR, CMP, ADIFF, PSA, CBC, ANEU, GFR #### [address] [address] #### B12, HCV1 #### [place] [address] Albumin/Globulin [Mass ratio] 0.8 {ratio} Low 1.1-2.5 [facility] Comment on above: Performed By: #### A 1C, LIPID, TSHR, CMP, ADIFF, PSA, CBC, ANEU, GFR #### [place] [address] #### B12, HCV1 #### [place] [address] ALP [Catalytic activity/Vol] 115 U/L Normal 40-135 [facility] Comment on above: Performed By: #### A 1C, LIPID, TSHR, CMP, ADIFF, PSA, CBC, ANEU, GFR #### [place] [address] #### B12, HCV1 #### [place] [address] ALT [Catalytic activity/Vol] 40 U/L Normal 16-63 [facility] Comment on above: Performed By: #### A 1C, LIPID, TSHR, CMP, ADIFF, PSA, CBC, ANEU, GFR #### [place] [address] #### B12, HCV1 #### [place] [id number] AST [Catalytic activity/Vol] 28 U/L Normal 10-40 [facility] Comment on above: Performed By: #### A 1C, LIPID, TSHR, CMP, ADIFF, PSA, CBC, ANEU, GFR #### [place] [address] #### B12, HCV1 #### [address] [address] Bili Total 0.2 mg/dL Normal 0.2-1.0 [facility] Comment on above: Result Comment: Use of this assay is not recommended for patients undergoing treatment with eltrombopag due to the potential for falsely elevated results. Performed By: #### A 1C, LIPID, TSHR, CMP, ADIFF, PSA, CBC, ANEU, GFR #### [place] [address] #### B12, HCV1 #### [place] [address] BUN/Creatinine Ratio 25 ratio Normal 7-27 [facility] Comment on above: Performed By: #### A 1C, LIPID, TSHR, CMP, ADIFF, PSA, CBC, ANEU, GFR #### [place] [address] #### B12, HCV1 #### [place] [address] Calcium [Mass/Vol] 9.8 mg/dL Normal 8.4-10.2 [facility] Comment on above: Performed By: #### A 1C, LIPID, TSHR, CMP, ADIFF, PSA, CBC, ANEU, GFR #### [place] [address] #### B12, HCV1 #### [place] [address] Chloride [Moles/Vol] 103 mmol/L Normal 98-107 [facility] Comment on above: Performed By: #### A 1C, LIPID, TSHR, CMP, ADIFF, PSA, CBC, ANEU, GFR #### [place] [address] #### B12, HCV1 #### [place] [id number] CO2 [Moles/Vol] 32 mmol/L High 23-31 [facility] Comment on above: Performed By: #### A 1C, LIPID, TSHR, CMP, ADIFF, PSA, CBC, ANEU, GFR #### [address] [address] #### B12, HCV1 #### [address] [address] Creatinine [Mass/Vol] 0.75 mg/dL Normal 0.67-1.17 [facility] Comment on above: Performed By: #### A 1C, LIPID, TSHR, CMP, ADIFF, PSA, CBC, ANEU, GFR #### [place] [address] #### B12, HCV1 #### [address] [address] Electrolyte Balance 6.0 mEq/L Normal 4.0-15.0 [facility] Comment on above: Performed By: #### A 1C, LIPID, TSHR, CMP, ADIFF, PSA, CBC, ANEU, GFR #### [place] [address] #### B12, HCV1 #### [place] [address] Globulin 4.5 G/dL High 2.7-4.4 [facility] Comment on above: Performed By: #### A 1C, LIPID, TSHR, CMP, ADIFF, PSA, CBC, ANEU, GFR #### [address] [address] #### B12, HCV1 #### [address] [address] Glucose [Mass/Vol] 86 mg/dL Normal 80-115 [facility] Comment on above: Performed By: #### A 1C, LIPID, TSHR, CMP, ADIFF, PSA, CBC, ANEU, GFR #### [place] [address] #### B12, HCV1 #### [address] [address] Potassium [Moles/Vol] 4.6 mmol/L Normal 3.5-5.1 [facility] Comment on above: Performed By: #### A 1C, LIPID, TSHR, CMP, ADIFF, PSA, CBC, ANEU, GFR #### [address] [address] #### B12, HCV1 #### [address] [address] Sodium [Moles/Vol] 141 mmol/L Normal 136-145 [facility] Comment on above: Performed By: #### A 1C, LIPID, TSHR, CMP, ADIFF, PSA, CBC, ANEU, GFR #### [address] [address] #### B12, HCV1 #### [address] [address] Total Protein 8.0 G/dL Normal 6.4-8.2 [facility] Comment on above: Performed By: #### A 1C, LIPID, TSHR, CMP, ADIFF, PSA, CBC, ANEU, GFR #### [address] [address] #### B12, HCV1 #### [address] [address] Urea nitrogen [Mass/Vol] 19 mg/dL High 7-18 [facility] Comment on above: Performed By: #### A 1C, LIPID, TSHR, CMP, ADIFF, PSA, CBC, ANEU, GFR #### [address] [address] #### B12, HCV1 #### [address] [address] LABORATORYOrdered By: SYSTEM SYSTEM on 08-01-2024 Albumin BCP dye [Mass/Vol] 3.5 G/dL Normal 3.4 - 4.8 G/dL AO ADM SS Albumin/Globulin [Mass ratio] 0.8 {ratio} Low 1.1 - 2.5 ratio AO ADM SS ALP [Catalytic activity/Vol] 115 U/L Normal 40 - 135 U/L AO ADM SS ALT With P-5'-P [Catalytic activity/Vol] 40 U/L Normal 16 - 63 U/L AO ADM SS AST With P-5'-P [Catalytic activity/Vol] 28 U/L Normal 10 - 40 U/L AO ADM SS Basophils (Bld) [#/Vol] 0.1 103/mcL Normal 0.0 - 0.3 10^3/mcL AO Workflow SS Basophils/100 WBC (Bld) 0.5 % Normal 0.0 - 2.5 % AO Workflow SS Bilirubin [Mass/Vol] 0.2 mg/dL Normal 0.2 - 1 .0 mg/dL AO ADM SS Comment on above: Interpretive Data: U se of this assay is not recommended for patients undergoing treatment with eltrombopag due to the potential for falsely elevated results. Calcium [Mass/Vol] 9.8 mg/dL Normal 8.4 - 10. 2 mg/dL AO ADM SS Chloride [Moles/Vol] 103 mmol/L Normal 98 - 10 7 mmol/L AO ADM SS CO2 [Moles/Vol] 32 mmol/L High 23 - 31 mmol/L AO ADM SS Cobalamin (Vitamin B12) [Mass/Vol] 594 pg/mL Normal 211 - 911 pg/mL AH ADM SS Creatinine [Mass/Vol] 0.75 mg/dL Normal 0.67 - 1.17 mg/dL AO ADM SS Electrolyte Balance 6.0 mEq/L Normal 4.0 - 15 .0 mEq/L AO ADM SS Eosinophil, Absolute 0.3 103/mcL Normal 0.0 - 0 .7 10^3/mcL AO Workflow SS Eosinophils/100 WBC (Bld) 3.0 % Normal 0.0 - 6.0 % AO Workflow SS Erythrocyte distribution width (RBC) [Ratio] 14.1 % Normal 11.5 - 15.5 % AO Workflow SS Estimated Glomerular Filtration Rate 100 ml/min/1.73sqm Invalid Interpretation Code AO Chemistry S Comment on above: Interpretive Data: Stages of Chronic Kidney Disease (CKD) Stage Description eGFR(ml/min/1.73 sq.m.) CKD 1 Normal kidney function or >=90 normal kindney function with possible kidney damage (ex. Proteinuria) CKD 2 Kidney damage with mild loss 60-89 of kidney function CKD 3a Mild to moderate loss of kidney 45-59 function CKD 3b Moderate to severe loss of 30-44 of kindey function CKD 4 Severe loss of kidney function 15-29 CKD 5 Kidney failure <15 Note: (go live 2024) the eGFR calculation was updated to the 2020 CKD-EPI creatinine equation without a race factor to calculate the eGFR results. Globulin 4.5 G/dL High 2.7 - 4.4 G/dL AO ADM SS Glucose [Mass/Vol] 86 mg/dL Normal 80 - 115 mg/dL AO ADM SS Glucose [Mass/Vol] 117 mg/dL Invalid Interpretation Code AO Chemistry S Comment on above: Interpretive Data: E stimated average glucose (eAG) is a calculated value from Hemoglobin A1C and is kiosk sales representative of the average blood glucose level in the last 2-3 month period. Normal range: less than 114 mg/dL HbA1c (Bld) [Mass fraction] 5.7 % Normal 4.3 - 6.4 % AO ADM SS Hematocrit (Bld) [Volume fraction] 36.5 % Low 40.0 - 52.0 % AO Workflow SS Hemoglobin (Bld) [Mass/Vol] 12.4 G/dL Low 13.0 - 17.5 G/dL AO Workflow SS Lymphocytes (Bld) [#/Vol] 1.2 103/mcL Normal 0.9 - 4.3 10^3/mcL AO Workflow SS Lymphocytes/100 WBC (Bld) 12.7 % Low 20.0 - 40.0 % AO Workflow SS MCH (RBC) [Entitic mass] 31.0 pg Normal 27.0 - 33.0 pg AO Workflow SS MCHC 33.9 G/dL Normal 32.0 - 36.0 G/dL AO Workflow SS MCV (RBC) [Entitic vol] 91.6 fL Normal 81.0 - 100.0 fL AO Workflow SS Monocytes (Bld) [#/Vol] 0.8 103/mcL Normal 0.1 - 1.4 10^3/mcL AO Workflow SS Monocytes/100 WBC (Bld) 8.7 % Normal 2.0 - 13.0 % AO Workflow SS Neutrophils (Bld) [#/Vol] 7.2 103/mcL Normal 2.3 - 8.1 10^3/mcL AO Workflow SS Neutrophils/100 WBC (Bld) 75.1 % High 50.0 - 75.0 % AO Workflow SS Platelet mean volume (Bld) [Entitic vol] 8.6 fL Normal 6.4 - 10.5 fL AO Workflow SS Platelets (Bld) [#/Vol] 319 103/mcL Normal 150 - 450 10^3/mcL AO Workflow SS Potassium [Moles/Vol] 4.6 mmol/L Normal 3.5 - 5.1 mmol/L AO ADM SS Prostate specific Ag [Mass/Vol] 0.82 ng/mL Normal 0.00 - 4.00 ng/mL AO ADM SS Protein [Mass/Vol] 8.0 G/dL Normal 6.4 - 8.2 G/dL AO ADM SS RBC (Bld) [#/Vol] 3.98 106/mcL Low 4.50 - 6.0 0 10^6/mcL AO Workflow SS Sodium [Moles/Vol] 141 mmol/L Normal 136 - 145 mmol/L AO ADM SS TSH Qn 1.95 m[IU]/L Normal 0.36 - 3.74 mcIU/mL AO ADM SS Urea nitrogen [Mass/Vol] 19 mg/dL High 7 - 18 mg/dL AO ADM SS Urea nitrogen/Creatinine [Mass ratio] 25 ratio Normal 7 - 27 ratio AO ADM SS WBC (Bld) [#/Vol] 9.6 103/mcL Normal 4.5 - 10.8 10^3/mcL AO Workflow SS LABORATORYOrdered By: Meli Scott on 08-01-2024 Cholesterol [Mass/Vol] 178 mg/dL Normal 0 - 200 mg/dL AO ADM SS Comment on above: Interpretive Data: C holesterol Reference Interval: Less than 200 Desirable 200-239 Borderline high risk 240 and above High risk Cholesterol in HDL [Mass/Vol] 69 mg/dL High 40 - 60 mg/dL AO ADM SS Cholesterol in LDL [Mass/Vol] 101 mg/dL Normal 0 - 130 mg/dL AO ADM SS Triglyceride [Mass/Vol] 42 mg/dL Normal 0 - 150 mg/dL AO ADM SS Comment on above: Interpretive Data: T riglyceride Reference Interval: Less than 150 Normal 150-199 Borderline high risk 200-499 High risk 500 or higher Very high risk LABORATORYOrdered By: Analy Wilcox on 08-01-2024 HCV Ab IA Ql Non-Reactive (08/01/24 3:38 PM) Normal Non-Reactive AH ADM SS HCV Ab IA Ql See Interp 6 *NA* (08/01/24 3:38 PM) Invalid Interpretation Code AH Chemistry S Comment on above: Result Comment: Clinical Interpretation: Nonreactive: Samples with a value < 0.80 are considered nonreactive (negative) for antibodies to HCV. A negative test result does not exclude the possibility of exposure to or infection with HCV. HCV antibodies may be undetectable in some stages of the infection and in some clinical conditions. LIPIDon 08-01-2024 Cholesterol [Mass/Vol] 178 mg/dL Normal 0-200 [facility] Comment on above: Result Comment: Chol esterol Reference Interval: Less than 200 Desirable 200-239 Borderline high risk 240 and above High risk Performed By: #### A 1C, LIPID, TSHR, CMP, ADIFF, PSA, CBC, ANEU, GFR #### [address] [address] #### B12, HCV1 #### [address] [address] Cholesterol in HDL [Mass/Vol] 69 mg/dL High 40-60 [facility] Comment on above: Performed By: #### A 1C, LIPID, TSHR, CMP, ADIFF, PSA, CBC, ANEU, GFR #### [place] [address] #### B12, HCV1 #### [address] [address] Cholesterol in LDL [Mass/Vol] 101 mg/dL Normal 0-130 [facility] Comment on above: Performed By: #### A 1C, LIPID, TSHR, CMP, ADIFF, PSA, CBC, ANEU, GFR #### [address] [address] #### B12, HCV1 #### [address] [address] Triglyceride [Mass/Vol] 42 mg/dL Normal 0-150 [facility] Comment on above: Result Comment: Trig lyceride Reference Interval: Less than 150 Normal 150-199 Borderline high risk 200-499 High risk 500 or higher Very high risk Performed By: #### A 1C, LIPID, TSHR, CMP, ADIFF, PSA, CBC, ANEU, GFR #### [address] [address] #### B12, HCV1 #### [address] [address] PSAon 08-01-2024 Prostate Specific Antigen 0.82 ng/mL Normal 0.00-4.00 [facility] Comment on above: Performed By: #### A 1C, LIPID, TSHR, CMP, ADIFF, PSA, CBC, ANEU, GFR #### [place] [address] [place], [place] [address] #### B12, HCV1 #### [address] [address] TSHRon 08-01-2024 TSH Qn 1.95 m[IU]/L Normal 0.36-3.74 [facility] Comment on above: Performed By: #### A 1C, LIPID, TSHR, CMP, ADIFF, PSA, CBC, ANEU, GFR #### [place] [address] [place], [place] [address] #### B12, HCV1 #### [place] [address] CT THORAX SCREENING W/O CONT [facility] 01-24-2024 CT THORAX SCREENING W/O CONTRAST ORIGINAL EXAMINATION: LOW DOSE SCREENING CT OF THE CHEST WITHOUT MZRLDMCX88/11/2024 4:22 pm TECHNIQUE: Low dose lung cancer screening CT of the chest was performed without the administration of intravenous contrast. Multiplanar reformatted images are provided for review. Automated exposure control, iterative reconstruction, and/or weight based adjustment of the mA/kV was utilized to reduce the radiation dose to as low as reasonably achievable. COMPARISON: 08/07/2021 and 11/08/2023 HISTORY: ORDERING SYSTEM PROVIDED HISTORY: Reason for Exam: 3 mo follow up abnromal LDCT chest, new 7mm nodule and other nodules FINDINGS: The heart is normal in size. Atherosclerosis seen of the coronary arteries and aorta. The great vessels appear normal in caliber. No lymphadenopathy is visible on this unenhanced exam. In the precarinal space, a lymph node measures 9 mm, similar to the 2021 exam Nephrolithiasis. Renal cysts measure less than 15 Hounsfield units. Severe emphysema. Multifocal scarring. Irregular density abutting both the right minor fissure and right major fissure on image 67 has increased in size. Previously, the lesion was measured at 7 mm in now the lesion is measured at 1.1 cm. Irregular nodular abnormality has also developed within a cystic space in the right upper lobe on image 61. The nodular component is approximately 1 cm. Worsening subpleural consolidations seen in the right lower lobe. A left lower lobe nodule on image 71 measures 3 mm. No pulmonary consolidation is identified. No pneumothorax or pleural effusion. No aggressive osseous lesions visible. Degenerative changes seen in the spine. IMPRESSION: Enlarging irregular nodule which appears to abut both the right minor fissure and right major fissure. The lesion appears to cross both fissure planes. There is also a new irregular nodular opacity which is developed in a cystic airspace in the right parahilar region/right upper lobe. PET-CT advised Other lung nodules Subpleural consolidation in the right lower lobe may be inflammatory. Emphysema with scarring Atherosclerosis with coronary artery calcifications The findings were sent to the Radiology Results Communication Center at 1:21 pm on 01/24/2024 to be communicated to a licensed caregiver. Information below is for Lung nodule tracking purposes: Nodule: S9 Other Findings: P-CAC Change: Change Recall : Immediately Recall Type: PET Bx LungRads: 4Bs Interpreted by: Merrill Velasquez MD Preliminary Report By: Merrill Velasquez MD Electronically signed By Merrill Velasquez MD Dictated Date: 01/24/2024 1:13:21 PM Prelim Date: 01/24/2024 1:24:33 PM Sign Date: 01/24/2024 1:24:33 PM Ordering Provider: MIGEL Rivera [facility] Pulmonary Visit Reporton Pulmonary Visit Report [facility] [address] [place] [address] OFFICE VISIT Date of Service: 11/16/23 MR#: [id number] Acct: [id number] Name: NEGAR HANLEY Rep #: [id number] : 1960 Provider: DANNY Paredes Age/Sex: 63/M [facility] Status: Signed Assessment and Plan Assessment and Plan (1) COPD (chronic obstructive pulmonary disease): Status: Chronic Qualifiers: COPD type: emphysema Emphysema type: centrilobular Qualified Code(s): J43.2 - Centrilobular emphysema Comment: FEV1 20% of predicted Plan: Very severe COPD. Escalating to triple therapy given his ongoing shortness of breath on exertion despite compliance with ICS/LABA maintenance inhaler. Provided him with a sample of Breztri. He is going to call the office in a few days to let us know if it has been helpful and if you would like a prescription. Went over medication side effects, patient will watch for urinary retention or hesitation. He is aware that he should be rinsing his mouth out after each use. No additional testing at this time. Plan to return to the office in February. He has been encouraged to contact the office with any new or worsening symptoms in the meantime. (2) Chronic hypoxemic respiratory failure: Status: Chronic Plan: The patient is using and benefiting from oxygen. Continue to utilize to maintain a saturation of 89-92%. Follow-up in February. (3) Lung nodule: Status: Chronic Plan: New nodules noted. The patient's primary care doctor has ordered a diagnostic CT of the chest to occur in 3 months, which I agree with. This will be performed at the same hospital that the most recent CT scan was done, for comparison reasons. Follow-up with the office in February to discuss test results. The patient is aware that at this time surveillance is the only option, these nodules are too small for PET scan or CT biopsy. HPI 6 M FU Chief Complaint: Test results HPI Comments Details: This patient presents to the office today to discuss test results. He is ambulatory, currently on supplemental oxygen and accompanied today by his . He has not recently been seen in the ED or urgent care for any respiratory illness. He has not required any antibiotics or prednisone for any breathing problems. He is compliant with the use of Symbicort 2 puffs twice daily. He does report rinsing his mouth out after each use. He denies any medication side effect such as sore throat or thrush. He is also utilizing Combivent several times daily. He is compliant with supplemental oxygen. He is currently using 3 L/min continuous. The patient does have shortness of breath that is worse with exertion. He is exerted easily. He denies any cough, sputum production or hemoptysis. He does feel as though he has chest congestion but cannot expectorate any sputum. He denies any wheezing, chest pain or palpitations. He has not had any fever, chills or body aches. The patient has been successful at quitting smoking for the past 2 weeks. He states that he quit cold turkey. Test results discussed with the patient: Interpretation of a CT scan of the chest without contrast that was completed on November 08, 2023 reviewed with the patient. Impression is a new 7 mm right midlung nodular opacity. Few 2 mm tree-in-bud nodules within the left lower lobe, as well as consolidation more inferiorly within the left lower lobe with smaller consolidation in the right lower lobe, likely infectious or inflammatory. Recommendation is to repeat a diagnostic CT of the chest in 3 months. Intake Vital Signs 12/09/22 12:35 11/16/23 12:44 Height 5 ft 7 in 5 ft 7 in Weight: 100 lb 100 lb BMI 15.6 15.6 BP 96/62 92/63 Blood Pressure Location Lt brachial Rt brachial Position Sitting Sitting Respiration 20 H 18 Pulse 77 80 Pulse Source Monitor Monitor Temp 95.6 F L 97.2 F L Temperature Source Temporal Artery Temporal Artery Pulse Oximetry (%) 88 94 Oxygen Delivery Method nasal canula nasal canula Oxygen Flow Rate (L/min) 2 3 Intake Visit Reasons: 6 M FU [employer] Required: No DME Vendor: [employer] Accompanied by: Sister Is patient in pain?: No Allergies No Known Allergies Allergy (Unverified 11/16/23 14:41) Medications ???Medication ???Instructions ???Recorded ???Confirmed ???Type albuterol sulfate 2.5 mg/3 mL 1.25 mg continuous nebulization 02/25/22 11/16/23 History (0.083 %) solution for nebulization Q6H PRN ipratropium 20 mcg-albuterol 100 1 puff inhalation Q4H PRN 02/25/22 11/16/23 History mcg/actuation mist for inhalation (Combivent Respimat) naproxen 375 mg tablet 750 mg PO BID PRN 02/25/22 11/16/23 History albuterol sulfate 90 mcg/actuation 2 puff inhalation Q4H PRN 08/16/23 11/16/23 Rx aerosol inhaler shortnes (more content not included)... Normal [facility] CT THORAX SCREENING W/O CONT Josey 11-09-2023 CT THORAX SCREENING W/O CONTRAST ORIGINAL EXAMINATION: LOW DOSE SCREENING CT OF THE CHEST WITHOUT CONTRAST11/08/2023 4:16 pm TECHNIQUE: Low dose lung cancer screening CT of the chest was performed without the administration of intravenous contrast. Multiplanar reformatted images are provided for review. Automated exposure control, iterative reconstruction, and/or weight based adjustment of the mA/kV was utilized to reduce the radiation dose to as low as reasonably achievable. COMPARISON: CT chest 08/07/2021 HISTORY: ORDERING SYSTEM PROVIDED HISTORY: Reason for Exam: current tobacco use, 20 pack year hx, age 50-77 FINDINGS: The heart is normal in size. No pericardial effusion. Multi-vessel coronary artery atherosclerotic calcifications. Nonaneurysmal thoracic aorta containing atherosclerotic calcifications. The main pulmonary artery is normal caliber. No lymphadenopathy is visible on this unenhanced exam. The trachea and mainstem bronchi are patent. No suspicious endotracheal or endobronchial nodule. Bronchial wall thickening, most notably involving the lower lungs. Multiple areas of mucous plugging are seen. Severe emphysematous changes. Scattered areas of pleural and parenchymal scarring. Left lower lobe consolidation. Smaller multifocal consolidations within the right lower lobe. Few adjacent tree-in-bud 2 mm nodules within the medial left lower lobe (image 319, series 3). There is also irregular nodular density within the right mid lung on image 70 of series 2 measuring 7 mm. This region appears new from previous exam. No pneumothorax. Trace left pleural fluid. No acute osseous abnormality. No aggressive osseous lesions. Stable minimal chronic compression deformity of the T12 vertebral body. Varying degrees of multifocal degenerative change. Redemonstration of partially imaged bilateral renal cysts. No acute or suspicious findings within the visualized upper abdomen. The abdomen is not evaluated in detail. IMPRESSION: New 7 mm right midlung nodular opacity. 3 month LDCT advised. Few 2 mm tree-in-bud nodules within the left lower lobe, as well as consolidation more inferiorly within the left lower lobe, with smaller consolidations in the right lower lobe, likely infectious or inflammatory. These can also be followed up at the time of the three-month low-dose CT. Bronchial wall thickening, possibly acute or chronic bronchitis. Attention on follow-up recommended. Emphysema. Trace left pleural fluid. Coronary artery atherosclerosis. Information below is for Lung nodule tracking purposes: Nodule: S4 Other Findings: P-CAC P-INFT Change: Change Recall : 3m fu Recall Type: LDCT LungRads: 4As RECOMMENDATIONS: Lung-RADS: Category 4A, Suspicious (Findings for which additional diagnostic testing is recommended). Management: 3 Month LDCT; PET/CT may be used when there is a > 8mm solid component. I have personally reviewed the images of this examination and agree with the resident's findings and interpretation. Interpreted by: Sreedhar Chaves DO Preliminary Report By: Lawson Duran Electronically signed By Sreedhar Chaves DO Dictated Date: 11/09/2023 9:18:05 AM Prelim Date: 11/09/2023 10:36:07 AM Sign Date: 11/09/2023 10:36:07 AM Ordering Provider: MIGEL Rivera [facility] ([place]) .Auto Diffon 07-07-2023 Basophil, Absolute 0.0 10 3/mcL Normal 0.0-0.2 On license of [facility] ([place]) Comment on above: Performed By: #### A DIFF, ANEU, CBC #### [address] [address] Basophils/100 WBC (Bld) 0.6 % Normal 0.0-2.5 [facility] ([place]) Comment on above: Performed By: #### A DIFF, ANEU, CBC #### [address] [address] Eosinophil, Absolute 0.1 10 3/mcL Normal 0.0-0.4 [facility] ([place]) Comment on above: Performed By: #### A DIFF, ANEU, CBC #### [address] [address] Eosinophils/100 WBC (Bld) 1.3 % Normal 0.0-7.0 [facility] ([place]) Comment on above: Performed By: #### A DIFF, ANEU, CBC #### [address] [address] Lymphocyte, Absolute 1.4 10 3/mcL Normal 0.8-3.9 [facility] ([place]) Comment on above: Performed By: #### A DIFF, ANEU, CBC #### [address] [address] Lymphocytes/100 WBC (Bld) 18.5 % Normal 10.0-50.0 [facility] ([place]) Comment on above: Performed By: #### A DIFF, ANEU, CBC #### [address] [address] Monocyte, Absolute 0.5 10 3/mcL Normal 0.2-1.0 On license of [facility] ([place]) Comment on above: Performed By: #### A DIFF, ANEU, CBC #### [address] [address] Monocytes/100 WBC (Bld) 6.3 % Normal 1.7-13.0 [facility] ([place]) Comment on above: Performed By: #### A DIFF, ANEU, CBC #### [address] [address] Neutrophils/100 WBC (Bld) 73.3 % Normal 37.0-80.0 [facility] ([place]) Comment on above: Performed By: #### A DIFF, ANEU, CBC #### [place] [address] .NEUABSon 07-07-2023 Neutrophil, Absolute 5.4 10 3/mcL Normal 2.9-6.2 [facility] ([place]) Comment on above: Performed By: #### A DIFF, ANEU, CBC #### [address] [address] CBCon 07-07-2023 Erythrocyte distribution width (RBC) [Ratio] 13.8 % Normal 11.5-14.5 [facility] ([place]) Comment on above: Performed By: #### A DIFF, ANEU, CBC #### [address] [address] Hematocrit (Bld) [Volume fraction] 33.4 % Low 42.0-52.0 [facility] ([place]) Comment on above: Performed By: #### A DIFF, ANEU, CBC #### [address] [address] Hgb 11.2 G/dL Low 14.0-18.0 [facility] ([place]) Comment on above: Performed By: #### A DIFF, ANEU, CBC #### [address] [address] MCH (RBC) [Entitic mass] 31.7 pg High 27.0-31.2 [facility] ([place]) Comment on above: Performed By: #### A DIFF, ANEU, CBC #### [address] [address] MCHC 33.5 G/dL Normal 31.8-35.4 [facility] ([place]) Comment on above: Performed By: #### A DIFF, ANEU, CBC #### [address] [address] MCV (RBC) [Entitic vol] 94.5 fL High 80.0-94.0 [facility] ([place]) Comment on above: Performed By: #### A DIFF, ANEU, CBC #### [address] [address] Platelet 228 10 3/mcL Normal 130-400 [facility] ([place]) Comment on above: Performed By: #### A DIFF, ANEU, CBC #### [address] [address] Platelet mean volume (Bld) [Entitic vol] 7.6 fL Normal 7.4-10.4 [facility] ([place]) Comment on above: Performed By: #### A DIFF, ANEU, CBC #### [address] [address] RBC 3.53 10 6/mcL Low 4.04-6.13 [facility] ([place]) Comment on above: Performed By: #### A DIFF, ANEU, CBC #### [address] [address] WBC 7.3 10 3/mcL Normal 4.6-10.8 [facility] ([place]) Comment on above: Performed By: #### A DIFF, ANEU, CBC #### [address] [address] LABORATORYOrdered By: SYSTEM SYSTEM on 07-07-2023 Basophil, Absolute 0.0 103/mcL Normal 0.0 - 0.2 10^3/mcL AO Workflow SS Basophils/100 WBC (Bld) 0.6 % Normal 0.0 - 2.5 % AO Workflow SS Eosinophil, Absolute 0.1 103/mcL Normal 0.0 - 0 .4 10^3/mcL AO Workflow SS Eosinophils/100 WBC (Bld) 1.3 % Normal 0.0 - 7.0 % AO Workflow SS Erythrocyte distribution width (RBC) [Ratio] 13.8 % Normal 11.5 - 14.5 % AO Workflow SS Hematocrit (Bld) [Volume fraction] 33.4 % Low 42.0 - 52.0 % AO Workflow SS Hemoglobin (Bld) [Mass/Vol] 11.2 G/dL Low 14.0 - 18.0 G/dL AO Workflow SS Lymphocyte, Absolute 1.4 103/mcL Normal 0.8 - 3 .9 10^3/mcL AO Workflow SS Lymphocytes/100 WBC (Bld) 18.5 % Normal 10.0 - 50.0 % AO Workflow SS MCH (RBC) [Entitic mass] 31.7 pg High 27.0 - 31.2 pg AO Workflow SS MCHC 33.5 G/dL Normal 31.8 - 35.4 G/dL AO Workflow SS MCV (RBC) [Entitic vol] 94.5 fL High 80.0 - 94.0 fL AO Workflow SS Monocyte, Absolute 0.5 103/mcL Normal 0.2 - 1.0 10^3/mcL AO Workflow SS Monocytes/100 WBC (Bld) 6.3 % Normal 1.7 - 13.0 % AO Workflow SS Neutrophil, Absolute 5.4 103/mcL Normal 2.9 - 6 .2 10^3/mcL AO Workflow SS Neutrophils/100 WBC (Bld) 73.3 % Normal 37.0 - 80.0 % AO Workflow SS Platelet mean volume (Bld) [Entitic vol] 7.6 fL Normal 7.4 - 10.4 fL AO Workflow SS Platelets (Bld) [#/Vol] 228 103/mcL Normal 130 - 400 10^3/mcL AO Workflow SS RBC (Bld) [#/Vol] 3.53 106/mcL Low 4.04 - 6.1 3 10^6/mcL AO Workflow SS WBC (Bld) [#/Vol] 7.3 103/mcL Normal 4.6 - 10.8 10^3/mcL AO Workflow SS .GFRon 06-06-2023 GFR 153 ml/min/1.73sqm Normal [facility] ([place]) Comment on above: Result Comment: GFR Population mean for , Non- Americans Ages 20-29 = 116 mL/min/1.73 sq.m. Ages 30-39 = 107 mL/min/1.73 sq.m. Ages 40-49 = 99 mL/min/1.73 sq.m. Ages 50-59 = 93 mL/min/1.73 sq.m. Ages 60-69 = 85 mL/min/1.73 sq.m. Ages 70+ = 75 mL/min/1.73 sq.m. Chronic Kidney Disease: Less than 60 mL/min/1.73 square meters End Stage Renal Disease: Less than 15 mL/min/1.73 square meters Performed By: #### B MP, GFR, FERR, FES #### [address] [address] #### B12 #### [address] [address] GFR Non- 126 ml/min/1.73sqm Normal [facility] ([place]) Comment on above: Result Comment: GFR Population mean for , Non- Americans Ages 20-29 = 116 mL/min/1.73 sq.m. Ages 30-39 = 107 mL/min/1.73 sq.m. Ages 40-49 = 99 mL/min/1.73 sq.m. Ages 50-59 = 93 mL/min/1.73 sq.m. Ages 60-69 = 85 mL/min/1.73 sq.m. Ages 70+ = 75 mL/min/1.73 sq.m. Chronic Kidney Disease: Less than 60 mL/min/1.73 square meters End Stage Renal Disease: Less than 15 mL/min/1.73 square meters Performed By: #### B MP, GFR, FERR, FES #### [address] [address] #### B12 #### [address] [address] B12on 06-06-2023 Cobalamin (Vitamin B12) [Mass/Vol] 335 pg/mL Normal 211-911 [facility] ([place]) Comment on above: Performed By: #### B MP, GFR, FERR, FES #### [place] [address] #### B12 #### [address] [address] BMPon 06-06-2023 BUN/Creatinine Ratio 34 ratio High 7-27 On license of [facility] ([place]) Comment on above: Performed By: #### B MP, GFR, FERR, FES #### [place] [address] #### B12 #### [address] [address] Calcium [Mass/Vol] 9.3 mg/dL Normal 8.4-10.2 [facility] ([place]) Comment on above: Performed By: #### B MP, GFR, FERR, FES #### [place] [address] #### B12 #### [place] [address] Chloride [Moles/Vol] 99 mmol/L Normal 98-107 On license of [facility] ([place]) Comment on above: Performed By: #### B MP, GFR, FERR, FES #### [place] [address] #### B12 #### [address] [address] CO2 [Moles/Vol] 39 mmol/L High 23-31 [facility] ([place]) Comment on above: Performed By: #### B MP, GFR, FERR, FES #### [place] [address] #### B12 #### [address] [address] Creatinine [Mass/Vol] 0.64 mg/dL Low 0.70-1.30 [facility] ([place]) Comment on above: Performed By: #### B MP, GFR, FERR, FES #### [place] [address] #### B12 #### [address] [address] Electrolyte Balance 5.0 mEq/L Normal 4.0-15.0 [facility] ([place]) Comment on above: Performed By: #### B MP, GFR, FERR, FES #### [address] [address] #### B12 #### [address] [address] Glucose [Mass/Vol] 121 mg/dL High 80-115 [facility] ([place]) Comment on above: Performed By: #### B MP, GFR, FERR, FES #### [address] [address] #### B12 #### [address] [address] Potassium [Moles/Vol] 4.3 mmol/L Normal 3.5-5.1 [facility] ([place]) Comment on above: Performed By: #### B MP, GFR, FERR, FES #### [address] [address] #### B12 #### [address] [address] Sodium [Moles/Vol] 143 mmol/L Normal 136-145 [facility] ([place]) Comment on above: Performed By: #### B MP, GFR, FERR, FES #### [address] [address] #### B12 #### [address] [address] Urea nitrogen [Mass/Vol] 22 mg/dL High 7-18 [facility] ([place]) Comment on above: Performed By: #### B MP, GFR, FERR, FES #### [address] [address] #### B12 #### [address] [address] Chris 06-06-2023 Ferritin [Mass/Vol] 174.0 ng/mL Normal 26.0-388.0 On license of [facility] ([place]) Comment on above: Performed By: #### B MP, GFR, FERR, FES #### [address] [address] #### B12 #### [address] [address] FESon 06-06-2023 Iron [Mass/Vol] 66 ug/dL Normal 65-175 [facility] ([place]) Comment on above: Performed By: #### B MP, GFR, FERR, FES #### [place] [address] #### B12 #### [place] [address] Iron Sat 25 % Normal [facility] ([place]) Comment on above: Performed By: #### B MP, GFR, FERR, FES #### [place] [address] #### B12 #### [place] [address] TIBC 263 mcg/dL Normal 250-450 [facility] ([place]) Comment on above: Performed By: #### B MP, GFR, FERR, FES #### [place] [address] #### B12 #### [address] [address] .Auto Diffon 04-15-2023 Basophil, Absolute 0.0 10 3/mcL Normal 0.0-0.2 On license of [facility] ([place]) Comment on above: Performed By: #### C BC, TSH, PSA, CMP, ANEU, LIPID, GFR, ADIFF, FT4 #### [place] [address] #### PRALB #### [place] [address] Basophils/100 WBC (Bld) 0.8 % Normal 0.0-2.5 [facility] ([place]) Comment on above: Performed By: #### C BC, TSH, PSA, CMP, ANEU, LIPID, GFR, ADIFF, FT4 #### [address] [address] #### PRALB #### [address] [address] Eosinophil, Absolute 0.1 10 3/mcL Normal 0.0-0.4 [facility] ([place]) Comment on above: Performed By: #### C BC, TSH, PSA, CMP, ANEU, LIPID, GFR, ADIFF, FT4 #### [address] [address] #### PRALB #### [address] [address] Eosinophils/100 WBC (Bld) 1.6 % Normal 0.0-7.0 [facility] ([place]) Comment on above: Performed By: #### C BC, TSH, PSA, CMP, ANEU, LIPID, GFR, ADIFF, FT4 #### [place] [address] #### PRALB #### [address] [address] Lymphocyte, Absolute 0.9 10 3/mcL Normal 0.8-3.9 [facility] ([place]) Comment on above: Performed By: #### C BC, TSH, PSA, CMP, ANEU, LIPID, GFR, ADIFF, FT4 #### [address] [address] #### PRALB #### [address] [address] Lymphocytes/100 WBC (Bld) 16.6 % Normal 10.0-50.0 [facility] ([place]) Comment on above: Performed By: #### C BC, TSH, PSA, CMP, ANEU, LIPID, GFR, ADIFF, FT4 #### [address] [address] #### PRALB #### [address] [address] Monocyte, Absolute 0.5 10 3/mcL Normal 0.2-1.0 On license of [facility] ([place]) Comment on above: Performed By: #### C BC, TSH, PSA, CMP, ANEU, LIPID, GFR, ADIFF, FT4 #### [address] [address] #### PRALB #### [address] [address] Monocytes/100 WBC (Bld) 8.5 % Normal 1.7-13.0 [facility] ([place]) Comment on above: Performed By: #### C BC, TSH, PSA, CMP, ANEU, LIPID, GFR, ADIFF, FT4 #### [address] [address] #### PRALB #### [address] [address] Neutrophils/100 WBC (Bld) 72.5 % Normal 37.0-80.0 [facility] ([place]) Comment on above: Performed By: #### C BC, TSH, PSA, CMP, ANEU, LIPID, GFR, ADIFF, FT4 #### [address] [address] #### PRALB #### [address] [address] .GFRon 04-15-2023 GFR 194 ml/min/1.73sqm Normal [facility] ([place]) Comment on above: Result Comment: GFR Population mean for , Non- Americans Ages 20-29 = 116 mL/min/1.73 sq.m. Ages 30-39 = 107 mL/min/1.73 sq.m. Ages 40-49 = 99 mL/min/1.73 sq.m. Ages 50-59 = 93 mL/min/1.73 sq.m. Ages 60-69 = 85 mL/min/1.73 sq.m. Ages 70+ = 75 mL/min/1.73 sq.m. Chronic Kidney Disease: Less than 60 mL/min/1.73 square meters End Stage Renal Disease: Less than 15 mL/min/1.73 square meters Performed By: #### A DIFF, ANEU, CBC #### [address] [address] GFR Non- 160 ml/min/1.73sqm Normal [facility] ([place]) Comment on above: Result Comment: GFR Population mean for , Non- Americans Ages 20-29 = 116 mL/min/1.73 sq.m. Ages 30-39 = 107 mL/min/1.73 sq.m. Ages 40-49 = 99 mL/min/1.73 sq.m. Ages 50-59 = 93 mL/min/1.73 sq.m. Ages 60-69 = 85 mL/min/1.73 sq.m. Ages 70+ = 75 mL/min/1.73 sq.m. Chronic Kidney Disease: Less than 60 mL/min/1.73 square meters End Stage Renal Disease: Less than 15 mL/min/1.73 square meters Performed By: #### A DIFF, ANEU, CBC #### [address] [address] .NEUABSon 04-15-2023 Neutrophil, Absolute 4.0 10 3/mcL Normal 2.9-6.2 [facility] ([place]) Comment on above: Performed By: #### A DIFF, ANEU, CBC #### [address] [address] CBCon 04-15-2023 Erythrocyte distribution width (RBC) [Ratio] 13.5 % Normal 11.5-14.5 [facility] ([place]) Comment on above: Performed By: #### C BC, TSH, PSA, CMP, ANEU, LIPID, GFR, ADIFF, FT4 #### [place] [address] #### PRALB #### [address] [address] Hematocrit (Bld) [Volume fraction] 31.1 % Low 42.0-52.0 [facility] ([place]) Comment on above: Performed By: #### C BC, TSH, PSA, CMP, ANEU, LIPID, GFR, ADIFF, FT4 #### [place] [id number] #### PRALB #### [address] [address] Hgb 10.3 G/dL Low 14.0-18.0 [facility] ([place]) Comment on above: Performed By: #### C BC, TSH, PSA, CMP, ANEU, LIPID, GFR, ADIFF, FT4 #### [place] [address] #### PRALB #### [place] [address] MCH (RBC) [Entitic mass] 31.3 pg High 27.0-31.2 [facility] ([place]) Comment on above: Performed By: #### C BC, TSH, PSA, CMP, ANEU, LIPID, GFR, ADIFF, FT4 #### [place] [address] #### PRALB #### [place] [address] MCHC 33.3 G/dL Normal 31.8-35.4 [facility] ([place]) Comment on above: Performed By: #### C BC, TSH, PSA, CMP, ANEU, LIPID, GFR, ADIFF, FT4 #### [place] [address] #### PRALB #### [place] [address] MCV (RBC) [Entitic vol] 94.2 fL High 80.0-94.0 [facility] ([place]) Comment on above: Performed By: #### C BC, TSH, PSA, CMP, ANEU, LIPID, GFR, ADIFF, FT4 #### [place] [address] #### PRALB #### [place] [address] Platelet 225 10 3/mcL Normal 130-400 [facility] ([place]) Comment on above: Performed By: #### C BC, TSH, PSA, CMP, ANEU, LIPID, GFR, ADIFF, FT4 #### [place] [address] #### PRALB #### [place] [address] Platelet mean volume (Bld) [Entitic vol] 8.0 fL Normal 7.4-10.4 [facility] ([place]) Comment on above: Performed By: #### C BC, TSH, PSA, CMP, ANEU, LIPID, GFR, ADIFF, FT4 #### [address] [address] #### PRALB #### [place] [address] RBC 3.30 10 6/mcL Low 4.04-6.13 [facility] ([place]) Comment on above: Performed By: #### C BC, TSH, PSA, CMP, ANEU, LIPID, GFR, ADIFF, FT4 #### [address] [address] #### PRALB #### [place] [address] WBC 5.5 10 3/mcL Normal 4.6-10.8 [facility] ([place]) Comment on above: Performed By: #### C BC, TSH, PSA, CMP, ANEU, LIPID, GFR, ADIFF, FT4 #### [address] [address] #### PRALB #### [place] [address] CMPon 04-15-2023 Albumin Level 3.6 G/dL Normal 3.4-4.8 [facility] ([place]) Comment on above: Performed By: #### A DIFF, ANEU, CBC #### [address] [address] Albumin/Globulin [Mass ratio] 1.2 {ratio} Normal 1.1-2.5 [facility] ([place]) Comment on above: Performed By: #### A DIFF, ANEU, CBC #### [address] [address] ALP [Catalytic activity/Vol] 74 U/L Normal 40-135 [facility] ([place]) Comment on above: Performed By: #### A DIFF, ANEU, CBC #### [address] [address] ALT [Catalytic activity/Vol] 16 U/L Normal 16-63 [facility] ([place]) Comment on above: Performed By: #### A DIFF, ANEU, CBC #### [address] [address] AST [Catalytic activity/Vol] 15 U/L Normal 10-40 [facility] ([place]) Comment on above: Performed By: #### A DIFF, ANEU, CBC #### [address] [address] Bili Total 0.4 mg/dL Normal 0.2-1.0 [facility] ([place]) Comment on above: Result Comment: Use of this assay is not recommended for patients undergoing treatment with eltrombopag due to the potential for falsely elevated results. Performed By: #### A DIFF, ANEU, CBC #### [address] [address] BUN/Creatinine Ratio 33 ratio High 7-27 On license of [facility] ([place]) Comment on above: Performed By: #### A DIFF, ANEU, CBC #### [address] [address] Calcium [Mass/Vol] 9.3 mg/dL Normal 8.4-10.2 [facility] ([place]) Comment on above: Performed By: #### A DIFF, ANEU, CBC #### [address] [address] Chloride [Moles/Vol] 99 mmol/L Normal 98-107 On license of [facility] ([place]) Comment on above: Performed By: #### A DIFF, ANEU, CBC #### [address] [address] CO2 [Moles/Vol] 41 mmol/L Critically abnormal 23-31 [facility] ([place]) Comment on above: Performed By: #### A DIFF, ANEU, CBC #### [address] [address] Creatinine [Mass/Vol] 0.52 mg/dL Low 0.70-1.30 [facility] ([place]) Comment on above: Performed By: #### A DIFF, ANEU, CBC #### [address] [address] Electrolyte Balance 1.0 mEq/L Low 4.0-15.0 [facility] ([place]) Comment on above: Performed By: #### A DIFF, ANEU, CBC #### [address] [address] Globulin 2.9 G/dL Normal [facility] ([place]) Comment on above: Performed By: #### A DIFF, ANEU, CBC #### [address] [address] Glucose [Mass/Vol] 79 mg/dL Low 80-115 [facility] ([place]) Comment on above: Performed By: #### A DIFF, ANEU, CBC #### [address] [address] Potassium [Moles/Vol] 4.6 mmol/L Normal 3.5-5.1 [facility] ([place]) Comment on above: Performed By: #### A DIFF, ANEU, CBC #### [address] [address] Sodium [Moles/Vol] 141 mmol/L Normal 136-145 [facility] ([place]) Comment on above: Performed By: #### A DIFF, ANEU, CBC #### [address] [address] Total Protein 6.5 G/dL Normal 6.4-8.2 [facility] ([place] Comment on above: Performed By: #### A DIFF, ANEU, CBC #### [address] [address] Urea nitrogen [Mass/Vol] 17 mg/dL Normal 7-18 [facility] ([place] Comment on above: Performed By: #### A DIFF, ANEU, CBC #### [address] [address] FT4on 04-15-2023 Free T4 [Mass/Vol] 1.24 ng/dL Normal 0.76-1.46 [facility] ([place]) Comment on above: Performed By: #### A DIFF, ANEU, CBC #### [place] [id number] [place], [place] [address] LABORATORYOrdered By: SYSTEM SYSTEM on 04-15-2023 Albumin BCP dye [Mass/Vol] 3.6 G/dL Normal 3.4 - 4.8 G/dL AO ADM SS Albumin/Globulin [Mass ratio] 1.2 {ratio} Normal 1.1 - 2.5 ratio AO ADM SS ALP [Catalytic activity/Vol] 74 U/L Normal 40 - 135 U/L AO ADM SS ALT With P-5'-P [Catalytic activity/Vol] 16 U/L Normal 16 - 63 U/L AO ADM SS AST With P-5'-P [Catalytic activity/Vol] 15 U/L Normal 10 - 40 U/L AO ADM SS Basophil, Absolute 0.0 103/mcL Normal 0.0 - 0.2 10^3/mcL AO Workflow SS Basophils/100 WBC (Bld) 0.8 % Normal 0.0 - 2.5 % AO Workflow SS Bilirubin [Mass/Vol] 0.4 mg/dL Normal 0.2 - 1 .0 mg/dL AO ADM SS Comment on above: Interpretive Data: U se of this assay is not recommended for patients undergoing treatment with eltrombopag due to the potential for falsely elevated results. Calcium [Mass/Vol] 9.3 mg/dL Normal 8.4 - 10. 2 mg/dL AO ADM SS Chloride [Moles/Vol] 99 mmol/L Normal 98 - 10 7 mmol/L AO ADM SS CO2 [Moles/Vol] 41 mmol/L Invalid Interpretation Code 23 - 31 mmol/L AO ADM SS Creatinine [Mass/Vol] 0.52 mg/dL Low 0.70 - 1.30 mg/dL AO ADM SS Electrolyte Balance 1.0 mEq/L Low 4.0 - 15 .0 mEq/L AO ADM SS Eosinophil, Absolute 0.1 103/mcL Normal 0.0 - 0 .4 10^3/mcL AO Workflow SS Eosinophils/100 WBC (Bld) 1.6 % Normal 0.0 - 7.0 % AO Workflow SS Erythrocyte distribution width (RBC) [Ratio] 13.5 % Normal 11.5 - 14.5 % AO Workflow SS Free T4 [Mass/Vol] 1.24 ng/dL Normal 0.76 - 1. 46 ng/dL AO ADM SS GFR/1.73 sq M.predicted among blacks MDRD (S/P/Bld) [Vol rate/Area] 194 ml/min/1.73sqm Invalid Interpretation Code AO Chemistry S Comment on above: Interpretive Data: GFR Population mean for , Non- Americans Ages 20-29 = 116 mL/min/1.73 sq.m. Ages 30-39 = 107 mL/min/1.73 sq.m. Ages 40-49 = 99 mL/min/1.73 sq.m. Ages 50-59 = 93 mL/min/1.73 sq.m. Ages 60-69 = 85 mL/min/1.73 sq.m. Ages 70+ = 75 mL/min/1.73 sq.m. Chronic Kidney Disease: Less than 60 mL/min/1.73 square meters End Stage Renal Disease: Less than 15 mL/min/1.73 square meters GFR/1.73 sq M.predicted among non-blacks MDRD (S/P/Bld) [Vol rate/Area] 160 ml/min/1.73sqm Invalid Interpretation Code AO Chemistry S Comment on above: Interpretive Data: GFR Population mean for , Non- Americans Ages 20-29 = 116 mL/min/1.73 sq.m. Ages 30-39 = 107 mL/min/1.73 sq.m. Ages 40-49 = 99 mL/min/1.73 sq.m. Ages 50-59 = 93 mL/min/1.73 sq.m. Ages 60-69 = 85 mL/min/1.73 sq.m. Ages 70+ = 75 mL/min/1.73 sq.m. Chronic Kidney Disease: Less than 60 mL/min/1.73 square meters End Stage Renal Disease: Less than 15 mL/min/1.73 square meters Globulin 2.9 G/dL Invalid Interpretation Code AO ADM SS Glucose [Mass/Vol] 79 mg/dL Low 80 - 115 mg/dL AO ADM SS Hematocrit (Bld) [Volume fraction] 31.1 % Low 42.0 - 52.0 % AO Workflow SS Hemoglobin (Bld) [Mass/Vol] 10.3 G/dL Low 14.0 - 18.0 G/dL AO Workflow SS Lymphocyte, Absolute 0.9 103/mcL Normal 0.8 - 3 .9 10^3/mcL AO Workflow SS Lymphocytes/100 WBC (Bld) 16.6 % Normal 10.0 - 50.0 % AO Workflow SS MCH (RBC) [Entitic mass] 31.3 pg High 27.0 - 31.2 pg AO Workflow SS MCHC 33.3 G/dL Normal 31.8 - 35.4 G/dL AO Workflow SS MCV (RBC) [Entitic vol] 94.2 fL High 80.0 - 94.0 fL AO Workflow SS Monocyte, Absolute 0.5 103/mcL Normal 0.2 - 1.0 10^3/mcL AO Workflow SS Monocytes/100 WBC (Bld) 8.5 % Normal 1.7 - 13.0 % AO Workflow SS Neutrophil, Absolute 4.0 103/mcL Normal 2.9 - 6 .2 10^3/mcL AO Workflow SS Neutrophils/100 WBC (Bld) 72.5 % Normal 37.0 - 80.0 % AO Workflow SS Platelet mean volume (Bld) [Entitic vol] 8.0 fL Normal 7.4 - 10.4 fL AO Workflow SS Platelets (Bld) [#/Vol] 225 103/mcL Normal 130 - 400 10^3/mcL AO Workflow SS Potassium [Moles/Vol] 4.6 mmol/L Normal 3.5 - 5.1 mmol/L AO ADM SS Prealbumin [Mass/Vol] 14.4 mg/dL Normal 10.0 - 40.0 mg/dL AH ADM SS Comment on above: Interpretive Data: * *Note - New Reference Range in effect 19 Prostate specific Ag [Mass/Vol] 0.39 ng/mL Normal 0.00 - 4.00 ng/mL AO ADM SS Protein [Mass/Vol] 6.5 G/dL Normal 6.4 - 8.2 G/dL AO ADM SS RBC (Bld) [#/Vol] 3.30 106/mcL Low 4.04 - 6.1 3 10^6/mcL AO Workflow SS Sodium [Moles/Vol] 141 mmol/L Normal 136 - 145 mmol/L AO ADM SS TSH Qn 1.45 m[IU]/L Normal 0.36 - 3.74 mcIU/mL AO ADM SS Urea nitrogen [Mass/Vol] 17 mg/dL Normal 7 - 18 mg/dL AO ADM SS Urea nitrogen/Creatinine [Mass ratio] 33 ratio High 7 - 27 ratio AO ADM SS WBC (Bld) [#/Vol] 5.5 103/mcL Normal 4.6 - 10.8 10^3/mcL AO Workflow SS LABORATORYOrdered By: Amanda Devine on 04-15-2023 Cholesterol [Mass/Vol] 191 mg/dL Normal 0 - 200 mg/dL AO ADM SS Comment on above: Interpretive Data: C holesterol Reference Interval: Less than 200 Desirable 200-239 Borderline high risk 240 and above High risk Cholesterol in HDL [Mass/Vol] 79 mg/dL High 40 - 60 mg/dL AO ADM SS Cholesterol in LDL [Mass/Vol] 106 mg/dL Normal 0 - 130 mg/dL AO ADM SS Triglyceride [Mass/Vol] 31 mg/dL Normal 0 - 150 mg/dL AO ADM SS Comment on above: Interpretive Data: T riglyceride Reference Interval: Less than 150 Normal 150-199 Borderline high risk 200-499 High risk 500 or higher Very high risk LIPIDon 04-15-2023 Cholesterol [Mass/Vol] 191 mg/dL Normal 0-200 [facility] ([place]) Comment on above: Result Comment: Chol esterol Reference Interval: Less than 200 Desirable 200-239 Borderline high risk 240 and above High risk Performed By: #### A DIFF, ANEU, CBC #### [address] [address] Cholesterol in HDL [Mass/Vol] 79 mg/dL High 40-60 [facility] ([place]) Comment on above: Performed By: #### A DIFF, ANEU, CBC #### [address] [address] Cholesterol in LDL [Mass/Vol] 106 mg/dL Normal 0-130 [facility] ([place]) Comment on above: Performed By: #### A DIFF, ANEU, CBC #### [address] [address] Triglyceride [Mass/Vol] 31 mg/dL Normal 0-150 [facility] ([place]) Comment on above: Result Comment: Trig lyceride Reference Interval: Less than 150 Normal 150-199 Borderline high risk 200-499 High risk 500 or higher Very high risk Performed By: #### A DIFF, ANEU, CBC #### [address] [address] PRALBon 04-15-2023 Prealbumin [Mass/Vol] 14.4 mg/dL Normal 10.0-40.0 [facility] ([place]) Comment on above: Result Comment: No te - New Reference Range in effect 19 Performed By: #### A DIFF, ANEU, CBC #### [address] [address] PSAon 04-15-2023 Prostate Specific Antigen 0.39 ng/mL Normal 0.00-4.00 [facility] ([place]) Comment on above: Performed By: #### A DIFF, ANEU, CBC #### [address] [address] TSHon 04-15-2023 TSH Qn 1.45 m[IU]/L Normal 0.36-3.74 [facility] ([place]) Comment on above: Performed By: #### A DIFF, ANEU, CBC #### [address] [address] Pulmonary Visit Reporton Pulmonary Visit Report [facility] [address] [place] [address] OFFICE VISIT Date of Service: 12/09/22 MR#: [id number] Acct: [id number] Name: NEGAR HANLEY Rep #: [id number] : 1960 Provider: Dr. Yinka Villeda DO Age/Sex: 62/M Location: [facility] Status: Signed Assessment and Plan Assessment and Plan (1) COPD (chronic obstructive pulmonary disease): Status: Chronic Plan: The patient has evidence of end-stage COPD based upon his pulmonary function studies from March 2022. The patient will remain on his triple therapy inhaler regimen. Symbicort will be transitioned to Advair HFA based upon his insurance coverage. (2) Nicotine dependence, cigarettes, uncomplicated: Status: Chronic Plan: Tobacco cessation counseling was provided. (3) Lung nodule: Status: Chronic Plan: The patient has a known right lower lobe pulmonary nodule measuring approximately 6 mm in size. In light of the size of the lung nodule and ongoing tobacco dependency, recommend follow-up CT imaging of the chest in July 2023. Orders have been placed accordingly. (4) Chronic hypoxemic respiratory failure: Status: Chronic Plan: Continue 2 L/min of supplemental oxygen with exertion. Orders: Orders Chest without Contrast 07/13/23 R91.1 - Solitary pulmonary nodule Medications: New fluticasone propion-salmeterol 230-21 mcg/actuation (Advair HFA) 2 puffs inhalation BID 12 grams 6RF Discontinued budesonide-formoterol 80-4.5 mcg/actuation (Symbicort) Discontinued Reason: Order Changed 2 inhalations inhalation BID HPI HPI Comments Details: The patient is a 62-year-old male who presents to the clinic today for a routine scheduled follow-up office visit. If you recall, the patient initially presented to our office in February 2022 for the evaluation of COPD. The patient has an approximate [id number] smoking history. He has a baseline nocturnal oxygen requirement of 2 L/min. In addition to his personal smoking history, the patient did grow up in a smoking household. However, he was never diagnosed with asthma in childhood. The patient has been on disability since 2014. Prior to this, the patient worked predominantly in the [employer] within the [facility]. CT chest without contrast dated July 2021 completed through [facility] demonstrated bilateral emphysematous changes along with bilateral pulmonary nodules, the largest of which measured 5 mm in the right lower lobe. Pulmonary function studies completed in March 2022 demonstrated an irreversible very severe large airways obstructive ventilatory defect with associated air trapping and symmetric reduction in diffusing capacity. 6-minute walk test demonstrated the need for 2 L/min of supplemental oxygen with exertion. Repeat CT chest without contrast completed in July 2022 continue to demonstrate severe bilateral emphysematous changes along with a 6 mm right lower lobe lung nodule. Today, the patient reported overall stability in his breathing quality. However, he did report that his insurance will no longer cover Symbicort. He remains compliant as well with the use of Combivent. He has not experienced any recent exacerbations. He does continue to have exertional shortness of breath, but denies any chest tightness, wheezing or cough. He remains compliant with use of supplemental oxygen. The patient does continue to smoke 0.25 packs of cigarettes per day. Intake Vital Signs 04/01/22 08:54 12/09/22 12:35 Height 5 ft 7 in 5 ft 7 in Weight: 100 lb BMI 15.6 BP 96/62 Blood Pressure Location Lt brachial Position Sitting Respiration 20 H Pulse 77 Pulse Source Monitor Temp 95.6 F L Temperature Source Temporal Artery Pulse Oximetry (%) 88 Oxygen Delivery Method nasal canula Oxygen Flow Rate (L/min) 2 Intake Visit Reasons: 5 M FOLLOW UP [employer] Required: No DME Vendor: [employer] Accompanied by: Self Is patient in pain?: No Allergies No Known Allergies Allergy (Unverified 12/09/22 14:14) Medications albuterol sulfate 2.5 mg/3 mL (0.083 %) solution for nebulization 1.25 mg continuous nebulization Q6H PRN 02/25/22 [History Confirmed 12/09/22] ipratropium 20 mcg-albuterol 100 mcg/actuation mist for inhalation (Combivent Respimat) 1 puff inhalation Q4H PRN 02/25/22 [History Confirmed 12/09/22] naproxen 375 mg tablet 750 mg PO BID PRN 02/25/22 [History Confirmed 12/09/22] albuterol sulfate 90 mcg/actuation aerosol inhaler 2 puff inhalation Q4H PRN shortness of breath or wheezing #8.5 grams 04/01/22 [Rx Confirmed 12/09/22] fluticasone propionate 230 mcg-salmeterol 21 mcg/actuation HFA inhaler (Advair HFA) 2 puff inhalation BID #12 grams 12/09/22 [Rx Confirmed 12/09/22] PFSH Social History (Updated 12/09/22 @ 14:14 by India Burr (more content not included)... Normal [facility] LABORATORYOrdered By: SYSTEM SYSTEM on 03-25-2022 Albumin BCP dye [Mass/Vol] 3.6 G/dL Invalid Interpretation Code 3.4 - 4.8 G/dL AO ADM SS Albumin/Globulin [Mass ratio] 1.2 {ratio} Invalid Interpretation Code 1.1 - 2.5 ratio AO ADM SS ALP [Catalytic activity/Vol] 89 U/L Invalid Interpretation Code 40 - 135 U/L AO ADM SS ALT With P-5'-P [Catalytic activity/Vol] 19 U/L Invalid Interpretation Code 16 - 63 U/L AO ADM SS AST With P-5'-P [Catalytic activity/Vol] 17 U/L Invalid Interpretation Code 10 - 40 U/L AO ADM SS Bilirubin [Mass/Vol] 0.3 mg/dL Invalid Interpretation Code 0.2 - 1.0 mg/dL AO ADM SS Calcium [Mass/Vol] 9.8 mg/dL Invalid Interpretation Code 8.4 - 10.2 mg/dL AO ADM SS Chloride [Moles/Vol] 99 mmol/L Invalid Interpretation Code 98 - 107 mmol/L AO ADM SS CO2 [Moles/Vol] 35 mmol/L Invalid Interpretation Code 23 - 31 mmol/L AO ADM SS Creatinine [Mass/Vol] 0.64 mg/dL Invalid Interpretation Code 0.70 - 1.30 mg/dL AO ADM SS CRP [Mass/Vol] 1.3 mg/dL Invalid Interpretation Code 0.0 - 0.9 mg/dL AO ADM SS Electrolyte Balance 5.0 mEq/L Invalid Interpretation Code 4.0 - 15.0 mEq/L AO ADM SS GFR 153 ml/min/1.73sqm Invalid Interpretation Code AO Chemistry S GFR Non- 126 ml/min/1.73sqm Invalid Interpretation Code AO Chemistry S Globulin 3.1 G/dL Invalid Interpretation Code AO ADM SS Glucose [Mass/Vol] 80 mg/dL Invalid Interpretation Code 80 - 115 mg/dL AO ADM SS Potassium [Moles/Vol] 5.2 mmol/L Invalid Interpretation Code 3.5 - 5.1 mmol/L AO ADM SS Protein [Mass/Vol] 6.7 G/dL Invalid Interpretation Code 6.4 - 8.2 G/dL AO ADM SS Sodium [Moles/Vol] 139 mmol/L Invalid Interpretation Code 136 - 145 mmol/L AO ADM SS Urea nitrogen [Mass/Vol] 12 mg/dL Invalid Interpretation Code 7 - 18 mg/dL AO ADM SS Urea nitrogen/Creatinine [Mass ratio] 19 ratio Invalid Interpretation Code 7 - 27 ratio AO ADM SS LABORATORYOrdered By: Meli Scott on 03-25-2022 Basophil, Absolute 0.1 103/mcL Invalid Interpretation Code 0.0 - 0.2 10^3/mcL AO Workflow SS Basophils/100 WBC (Bld) 0.7 % Invalid Interpretation Code 0.0 - 2.5 % AO Workflow SS Eosinophil, Absolute 0.1 103/mcL Invalid Interpretation Code 0.0 - 0.4 10^3/mcL AO Workflow SS Eosinophils/100 WBC (Bld) 1.1 % Invalid Interpretation Code 0.0 - 7.0 % AO Workflow SS Erythrocyte distribution width (RBC) [Ratio] 13.6 % Invalid Interpretation Code 11.5 - 14.5 % AO Workflow SS ESR 15 minute reading (Bld) [Velocity] 14 mm/hr Invalid Interpretation Code 0 - 20 mm/hr AO Man Heme SS Hematocrit (Bld) [Volume fraction] 41.3 % Invalid Interpretation Code 42.0 - 52.0 % AO Workflow SS Hemoglobin (Bld) [Mass/Vol] 13.6 G/dL Invalid Interpretation Code 14.0 - 18.0 G/dL AO Workflow SS Lymphocyte, Absolute 1.6 103/mcL Invalid Interpretation Code 0.8 - 3.9 10^3/mcL AO Workflow SS Lymphocytes/100 WBC (Bld) 22.8 % Invalid Interpretation Code 10.0 - 50.0 % AO Workflow SS MCH (RBC) [Entitic mass] 30.8 pg Invalid Interpretation Code 27.0 - 31.2 pg AO Workflow SS MCHC 33.0 G/dL Invalid Interpretation Code 31.8 - 35.4 G/dL AO Workflow SS MCV (RBC) [Entitic vol] 93.6 fL Invalid Interpretation Code 80.0 - 94.0 fL AO Workflow SS Monocyte, Absolute 0.5 103/mcL Invalid Interpretation Code 0.2 - 1.0 10^3/mcL AO Workflow SS Monocytes/100 WBC (Bld) 7.5 % Invalid Interpretation Code 1.7 - 13.0 % AO Workflow SS Neutrophil, Absolute 4.7 103/mcL Invalid Interpretation Code 2.9 - 6.2 10^3/mcL AO Workflow SS Neutrophils/100 WBC (Bld) 67.9 % Invalid Interpretation Code 37.0 - 80.0 % AO Workflow SS Platelet mean volume (Bld) [Entitic vol] 7.2 fL Invalid Interpretation Code 7.4 - 10.4 fL AO Workflow SS Platelets (Bld) [#/Vol] 306 103/mcL Invalid Interpretation Code 130 - 400 10^3/mcL AO Workflow SS RBC (Bld) [#/Vol] 4.41 106/mcL Invalid Interpretation Code 4.04 - 6.13 10^6/mcL AO Workflow SS WBC (Bld) [#/Vol] 6.9 103/mcL Invalid Interpretation Code 4.6 - 10.8 10^3/mcL AO Workflow SS LABORATORYOrdered By: Mary Ann Elder on 07-23-2021 Albumin BCP dye [Mass/Vol] 3.0 G/dL Invalid Interpretation Code 3.4 - 4.8 G/dL AO ADM SS Albumin/Globulin [Mass ratio] 0.8 {ratio} Invalid Interpretation Code 1.1 - 2.5 ratio AO ADM SS ALP [Catalytic activity/Vol] 104 U/L Invalid Interpretation Code 40 - 135 U/L AO ADM SS ALT With P-5'-P [Catalytic activity/Vol] 19 U/L Invalid Interpretation Code 16 - 63 U/L AO ADM SS AST With P-5'-P [Catalytic activity/Vol] 16 U/L Invalid Interpretation Code 10 - 40 U/L AO ADM SS Bilirubin [Mass/Vol] 0.3 mg/dL Invalid Interpretation Code 0.2 - 1.0 mg/dL AO ADM SS Calcium [Mass/Vol] 9.1 mg/dL Invalid Interpretation Code 8.4 - 10.2 mg/dL AO ADM SS Chloride [Moles/Vol] 100 mmol/L Invalid Interpretation Code 98 - 107 mmol/L AO ADM SS CO2 [Moles/Vol] 37 mmol/L Invalid Interpretation Code 23 - 31 mmol/L AO ADM SS Creatinine [Mass/Vol] 0.77 mg/dL Invalid Interpretation Code 0.70 - 1.30 mg/dL AO ADM SS Electrolyte Balance 4.0 mEq/L Invalid Interpretation Code 4.0 - 15.0 mEq/L AO ADM SS Globulin 3.7 G/dL Invalid Interpretation Code AO ADM SS Glucose [Mass/Vol] 84 mg/dL Invalid Interpretation Code 80 - 115 mg/dL AO ADM SS Potassium [Moles/Vol] 5.1 mmol/L Invalid Interpretation Code 3.5 - 5.1 mmol/L AO ADM SS Protein [Mass/Vol] 6.7 G/dL Invalid Interpretation Code 6.4 - 8.2 G/dL AO ADM SS Sodium [Moles/Vol] 141 mmol/L Invalid Interpretation Code 136 - 145 mmol/L AO ADM SS Urea nitrogen [Mass/Vol] 12 mg/dL Invalid Interpretation Code 7 - 18 mg/dL AO ADM SS Urea nitrogen/Creatinine [Mass ratio] 16 ratio Invalid Interpretation Code 7 - 27 ratio AO ADM SS LABORATORYOrdered By: Meli Scott on 07-23-2021 Basophil, Absolute 0.10 103/mcL Invalid Interpretation Code 0.00 - 0.19 10^3/mcL AO Auto Heme SS Basophils/100 WBC (Bld) 0.7 % Invalid Interpretation Code 0.0 - 2.5 % AO Auto Heme SS Eosinophil, Absolute 0.10 103/mcL Invalid Interpretation Code 0.00 - 0.40 10^3/mcL AO Auto Heme SS Eosinophils/100 WBC (Bld) 0.6 % Invalid Interpretation Code 0.0 - 7.0 % AO Auto Heme SS Erythrocyte distribution width (RBC) [Ratio] 14.1 % Invalid Interpretation Code 11.5 - 14.5 % AO Auto Heme SS Hematocrit (Bld) [Volume fraction] 39.2 % Invalid Interpretation Code 42.0 - 52.0 % AO Auto Heme SS Hemoglobin (Bld) [Mass/Vol] 13.1 G/dL Invalid Interpretation Code 14.0 - 18.0 G/dL AO Auto Heme SS Lymphocyte, Absolute 1.50 103/mcL Invalid Interpretation Code 0.77 - 3.85 10^3/mcL AO Auto Heme SS Lymphocytes/100 WBC (Bld) 17.6 % Invalid Interpretation Code 10.0 - 50.0 % AO Auto Heme SS MCH (RBC) [Entitic mass] 31.0 pg Invalid Interpretation Code 27.0 - 31.2 pg AO Auto Heme SS MCHC (RBC) [Mass/Vol] 33.4 G/dL Invalid Interpretation Code 31.8 - 35.4 G/dL AO Auto Heme SS MCV (RBC) [Entitic vol] 92.6 fL Invalid Interpretation Code 80.0 - 94.0 fL AO Auto Heme SS Monocyte, Absolute 0.50 103/mcL Invalid Interpretation Code 0.15 - 1.00 10^3/mcL AO Auto Heme SS Monocytes/100 WBC (Bld) 6.4 % Invalid Interpretation Code 1.7 - 13.0 % AO Auto Heme SS Neutrophil, Absolute 6.40 103/mcL Invalid Interpretation Code 2.85 - 6.16 10^3/mcL AO Auto Heme SS Neutrophils/100 WBC (Bld) 74.7 % Invalid Interpretation Code 37.0 - 80.0 % AO Auto Heme SS Platelet mean volume (Bld) [Entitic vol] 7.6 fL Invalid Interpretation Code 7.4 - 10.4 fL AO Auto Heme SS Platelets (Bld) [#/Vol] 527 103/mcL Invalid Interpretation Code 130 - 400 10^3/mcL AO Auto Heme SS RBC (Bld) [#/Vol] 4.24 106/mcL Invalid Interpretation Code 4.04 - 6.13 10^6/mcL AO Auto Heme SS WBC (Bld) [#/Vol] 8.60 103/mcL Invalid Interpretation Code 4.60 - 10.80 10^3/mcL AO Auto Heme SS LABORATORYOrdered By: SYSTEM SYSTEM on 07-23-2021 GFR 124 ml/min/1.73sqm Invalid Interpretation Code AO Chemistry S GFR Non- 102 ml/min/1.73sqm Invalid Interpretation Code AO Chemistry S LABORATORYOrdered By: Lang Winters on 01-27-2021 Albumin BCP dye [Mass/Vol] 3.6 G/dL Invalid Interpretation Code 3.4 - 4.8 G/dL AO ADM SS Albumin/Globulin [Mass ratio] 1.2 {ratio} Invalid Interpretation Code 1.1 - 2.5 ratio AO ADM SS ALP [Catalytic activity/Vol] 90 U/L Invalid Interpretation Code 40 - 135 U/L AO ADM SS ALT With P-5'-P [Catalytic activity/Vol] 23 U/L Invalid Interpretation Code 16 - 63 U/L AO ADM SS AST With P-5'-P [Catalytic activity/Vol] 19 U/L Invalid Interpretation Code 10 - 40 U/L AO ADM SS Bilirubin [Mass/Vol] 0.4 mg/dL Invalid Interpretation Code 0.2 - 1.0 mg/dL AO ADM SS Calcium [Mass/Vol] 9.3 mg/dL Invalid Interpretation Code 8.4 - 10.2 mg/dL AO ADM SS Chloride [Moles/Vol] 98 mmol/L Invalid Interpretation Code 98 - 107 mmol/L AO ADM SS Cholesterol [Mass/Vol] 160 mg/dL Invalid Interpretation Code 0 - 200 mg/dL AO ADM SS Cholesterol in HDL [Mass/Vol] 59 mg/dL Invalid Interpretation Code 40 - 60 mg/dL AO ADM SS Cholesterol in LDL [Mass/Vol] 93 mg/dL Invalid Interpretation Code 0 - 130 mg/dL AO ADM SS CO2 [Moles/Vol] 35 mmol/L Invalid Interpretation Code 23 - 31 mmol/L AO ADM SS Creatinine [Mass/Vol] 0.75 mg/dL Invalid Interpretation Code 0.70 - 1.30 mg/dL AO ADM SS Electrolyte Balance 4.0 mEq/L Invalid Interpretation Code AO ADM SS Globulin 3.0 G/dL Invalid Interpretation Code AO ADM SS Glucose [Mass/Vol] 85 mg/dL Invalid Interpretation Code 80 - 115 mg/dL AO ADM SS Potassium [Moles/Vol] 5.1 mmol/L Invalid Interpretation Code 3.5 - 5.1 mmol/L AO ADM SS Prostate specific Ag [Mass/Vol] 0.39 ng/mL Invalid Interpretation Code 0.00 - 4.00 ng/mL AO ADM SS Protein [Mass/Vol] 6.6 G/dL Invalid Interpretation Code 6.4 - 8.2 G/dL AO ADM SS Sodium [Moles/Vol] 137 mmol/L Invalid Interpretation Code 136 - 145 mmol/L AO ADM SS Triglyceride [Mass/Vol] 41 mg/dL Invalid Interpretation Code 0 - 150 mg/dL AO ADM SS TSH Qn 1.80 m[IU]/L Invalid Interpretation Code 0.36 - 3.74 mcIU/mL AO ADM SS Urea nitrogen [Mass/Vol] 10 mg/dL Invalid Interpretation Code 7 - 18 mg/dL AO ADM SS Urea nitrogen/Creatinine [Mass ratio] 13 ratio Invalid Interpretation Code 7 - 27 ratio AO ADM SS LABORATORYOrdered By: India Espino on 01-27-2021 Basophil, Absolute 0.10 103/mcL Invalid Interpretation Code 0.00 - 0.19 10^3/mcL AO Auto Heme SS Basophils/100 WBC (Bld) 1.1 % Invalid Interpretation Code 0.0 - 2.5 % AO Auto Heme SS Eosinophil, Absolute 0.00 103/mcL Invalid Interpretation Code 0.00 - 0.40 10^3/mcL AO Auto Heme SS Eosinophils/100 WBC (Bld) 0.7 % Invalid Interpretation Code 0.0 - 7.0 % AO Auto Heme SS Erythrocyte distribution width (RBC) [Ratio] 13.7 % Invalid Interpretation Code 11.5 - 14.5 % AO Auto Heme SS Hematocrit (Bld) [Volume fraction] 44.6 % Invalid Interpretation Code 42.0 - 52.0 % AO Auto Heme SS Hemoglobin (Bld) [Mass/Vol] 14.8 G/dL Invalid Interpretation Code 14.0 - 18.0 G/dL AO Auto Heme SS Lymphocyte, Absolute 1.00 103/mcL Invalid Interpretation Code 0.77 - 3.85 10^3/mcL AO Auto Heme SS Lymphocytes/100 WBC (Bld) 15.3 % Invalid Interpretation Code 10.0 - 50.0 % AO Auto Heme SS MCH (RBC) [Entitic mass] 31.1 pg Invalid Interpretation Code 27.0 - 31.2 pg AO Auto Heme SS MCHC (RBC) [Mass/Vol] 33.2 G/dL Invalid Interpretation Code 31.8 - 35.4 G/dL AO Auto Heme SS MCV (RBC) [Entitic vol] 93.5 fL Invalid Interpretation Code 80.0 - 94.0 fL AO Auto Heme SS Monocyte, Absolute 0.50 103/mcL Invalid Interpretation Code 0.15 - 1.00 10^3/mcL AO Auto Heme SS Monocytes/100 WBC (Bld) 7.4 % Invalid Interpretation Code 1.7 - 13.0 % AO Auto Heme SS Neutrophil, Absolute 5.00 103/mcL Invalid Interpretation Code 2.85 - 6.16 10^3/mcL AO Auto Heme SS Neutrophils/100 WBC (Bld) 75.5 % Invalid Interpretation Code 37.0 - 80.0 % AO Auto Heme SS Platelet mean volume (Bld) [Entitic vol] 8.4 fL Invalid Interpretation Code 7.4 - 10.4 fL AO Auto Heme SS Platelets (Bld) [#/Vol] 256 103/mcL Invalid Interpretation Code 130 - 400 10^3/mcL AO Auto Heme SS RBC (Bld) [#/Vol] 4.77 106/mcL Invalid Interpretation Code 4.04 - 6.13 10^6/mcL AO Auto Heme SS WBC (Bld) [#/Vol] 6.60 103/mcL Invalid Interpretation Code 4.60 - 10.80 10^3/mcL AO Auto Heme SS LABORATORYOrdered By: SYSTEM SYSTEM on 01-27-2021 GFR 128 ml/min/1.73sqm Invalid Interpretation Code AO Chemistry S GFR Non- 106 ml/min/1.73sqm Invalid Interpretation Code AO Chemistry S Vital Signs Date Time Vital Sign Value Performing Clinician Faci [facility] 04-01-2022 08:54-0500 Body height 170.[address] Yinka Villeda Work Phone: [facility] 04-01-2022 08:54-0500 Body mass index (BMI) [Ratio] 16 kg/m2 Dr. Yinka Villeda Work Phone: [facility] 04-01-2022 08:54-0500 Body temperature 97.5 [degF] Dr. Yinka Villeda Work Phone: [facility] 04-01-2022 08:54-0500 Body weight 46.[address] Yinka Villeda Work Phone: [facility] 04-01-2022 08:54-0500 Diastolic blood pressure 61 mm[Hg] Dr. Yinka Villeda Work Phone: [facility] 04-01-2022 08:54-0500 Heart rate 92 /min Dr. Yinka Villeda Work Phone: [facility] 04-01-2022 08:54-0500 Inhaled oxygen flow rate 2 L/min Dr. Yinka Villeda Work Phone: [facility] 04-01-2022 08:54-0500 Respiratory rate 16 /min Dr. Yinka Villeda Work Phone: [facility] 04-01-2022 08:54-0500 SaO2% (BldA) [Mass fraction] 97 % Dr. Yinka Villeda Work Phone: [facility] 04-01-2022 08:54-0500 Systolic blood pressure 89 mm[Hg] Dr. Yinka Villeda Work Phone: [facility] 03-17-2022 13:00-0500 Body weight 47.[address] Yinka Villeda Work Phone: [facility] 03-17-2022 13:00-0500 Heart rate 83 /min Dr. Yinka Villeda Work Phone: [facility] 03-17-2022 13:00-0500 Inhaled oxygen flow rate 2 L/min Dr. Yinka Villeda Work Phone: [facility] 03-17-2022 13:00-0500 SaO2% (BldA) [Mass fraction] 91 % Dr. Yinka Villeda Work Phone: [facility] 02-25-2022 10:48-0500 Body mass index (BMI) [Ratio] 16.1 kg/m2 Dr. Yinka Villeda Work Phone: [facility] 02-25-2022 10:48-0500 Body temperature 97.1 [degF] Dr. Yinka Villeda Work Phone: [facility] 02-25-2022 10:48-0500 Body weight 46.[address] Yinka Villeda Work Phone: [facility] 02-25-2022 10:48-0500 Diastolic blood pressure 58 mm[Hg] Dr. Yinka Villeda Work Phone: [facility] 02-25-2022 10:48-0500 Heart rate 80 /min Dr. Yinka Villeda Work Phone: [facility] 02-25-2022 10:48-0500 Respiratory rate 16 /min Dr. Yinka Villeda Work Phone: [facility] 02-25-2022 10:48-0500 SaO2% (BldA) [Mass fraction] 94 % Dr. Yinka Villeda Work Phone: [facility] 02-25-2022 10:48-0500 Systolic blood pressure 86 mm[Hg] Dr. Yinka Villeda Work Phone: [facility] Encounters Encounter Date Encounter Type Care Provider Facility Start: 10-05-2024 ambulatory MIGEL GREENE DO Faci lity:A Start: 09-24-2024 End: 09-24-2024 ambulatory MIGEL GREENE DO Facility:[facility] Start: 09-24-2024 End: 09-24-2024 Patient encounter procedure MIGEL GREENE DO [facility] Start: 08-01-2024 End: 08-05-2024 ambulatory MIGEL GREENE DO Facility:[facility] [place] Start: 08-01-2024 End: 08-05-2024 Encounter for general adult medical examination without abnormal findings MIGEL GREENE DO Facility:[facility] Start: 08-01-2024 End: 08-05-2024 Outreach Lab MIGEL GREENE DO [facility] Start: 01-23-2024 End: 01-23-2024 ambulatory MIGEL GREENE DO Facility:[facility] [place] Start: 01-23-2024 End: 01-23-2024 Patient encounter procedure MIGEL GREENE DO [facility] Start: 11-16-2023 End: 11-16-2023 ambulatory Millicent Paredes NP Facility:[facility] Start: 11-08-2023 End: 11-08-2023 ambulatory MIGEL GREENE DO Facility:[facility] Start: 11-08-2023 End: 11-08-2023 Patient encounter procedure MIGEL GREENE DO [facility] Start: 07-07-2023 End: 07-07-2023 ambulatory MGIEL GREENE DO Facility:[facility] Start: 07-07-2023 End: 07-07-2023 Patient encounter procedure MIGEL GREENE DO [facility] Start: 07-07-2023 End: 07-07-2023 Well adult monitoring check done MIGEL GREENE DO [facility] Start: 06-06-2023 End: 06-06-2023 ambulatory MIGEL GREENE DO Facility:[facility] Start: 04-15-2023 End: 04-19-2023 ambulatory MIGEL GREENE DO Facility:[facility] Start: 04-15-2023 End: 04-19-2023 Encounter for general adult medical examination without abnormal findings MIGEL GREENE DO Facility:[facility] Start: 04-15-2023 End: 04-19-2023 Outreach Lab MIGEL GREENE DO [facility] Start: 12-09-2022 End: 12-09-2022 ambulatory Migel Greene Facility:[facility] Start: 08-05-2022 End: 08-05-2022 ambulatory [facility] Work Phone: Start: 08-05-2022 End: 08-05-2022 Patient encounter procedure [facility] Work Phone: Start: 04-01-2022 End: 04-01-[address] Yinka [facility]illed[facility] Start: 03-25-2022 End: 03-25-2022 Patient encounter procedure MYA CARBAJALY DO [facility] Start: 03-24-2022 Non-patient / Non-visit Dr. Crowell Work Phone: [facility] Start: 03-22-2022 End: 03-22-[address] Yinka Villeda Work Phone: [facility] Work Phone: Start: 03-22-2022 End: 03-22-[address] Yinka Villeda Work Phone: [facility] Start: 03-17-2022 Non-patient / Non-visit Dr. Crowell Work Phone: [facility] Start: 03-17-2022 End: 03-17-[address] Yinka Villeda Work Phone: [facility] Work Phone: Start: 03-17-2022 End: 03-17-[address] Yinka Villeda Work Phone: [facility] Start: 02-25-2022 End: 02-25-[address] Yinka Villeda Work Phone: [facility] Start: 08-07-2021 End: 08-07-2021 Patient encounter procedure JAYLA PELAYO MD [facility] Start: 07-23-2021 End: 07-23-2021 Patient encounter procedure JAYLA PELAYO MD [facility] Start: 01-27-2021 End: 01-27-2021 Patient encounter procedure JAYLA PELAYO MD [facility] Procedures Date Procedure Procedure Detail Performing Clinician Start: 08-05-2022 CT of chest without contrast Start: 12-06-2014 Measurement of respiratory function JAYLA PELAYO MD Comment on above: Dr. Dior; [facility] Start: 03-14-2011 Hernia repair JAYLA SAAB MD Hernia repair JAYLA PELAYO MD Vaccine refused by patient COVID-19 vaccination declined( Confirmed ) MYA HUERTA DO Plan of Treatment Date Care Activity Detail Author CT Chest WO contrast [facility] Immunizations Immunization Date Immunization Notes Care Provider Agatha walker 06-29-2012 tetanus toxoid, redu joan diphtheria toxoid, and acellular pertussis vaccine, adsorbed JAYLA PELAYO MD [facility] Payers Date Payer Category Payer Private Health Insurance [id number] 2023 Unknown [id number] 2022 Self-pay 2022 Unknown [id number] 2018 Medicare [id number] 2016 Medicare [id number] 1960 Unknown [id number] 2.16.8 [id number] 1958 Unknown [id number] 2.16.8 [id number] 1958 Unknown [id number] 2.16.8 [id number] 1958 Unknown [id number] 2.16.8 [id number] 1958 Unknown [id number] 2.16. [id number] 1958 Unknown [id number] 2.16.8 [id number] 1958 Unknown [id number] 2.16.8 [id number] 1958 Unknown [id number] 2.16. [id number] Unknown [id number] Unknown [id number] 2.16.8 [id number] Unknown [id number] 2.16.8 [id number] Social History Date Type Detail Facility Start: 11-17-2018 End: 11-15-2023 Light tobacco smoker (finding) [facility] Start: 1960 Sex Assigned At Male [facility] Start: 01-31-2024 Tobacco smoking status Ex-smoker (fi nding) [facility] [place] [facility] O[facility] Start: 05-17-2019 Sex Male (finding) [facility] Clinical Notes 03-17-2022 to 03-24-2022 RadiologyRadiologyLaboratoryRadiologyRadiologyLaboratoryRadiologyLaboratoryLabor atoryRadiologyLaboratory Note Date & Type Note Facility 03-24-[address] [facility] 03-17-[address] [facility] Evaluation + Plan note Future Appointments Appointment Date:04/23/2021 10:45:00 AM Scheduled Provider:JAYLA PELAYO MD Location:[facility] Appointment Type:PC OV [facility] Evaluation + Plan note Future Appointments Appointment Date:10/16/2021 12:30:00 PM Scheduled Provider:MGIEL GREENE DO Location:[facility] Appointment Type:PC OV Future Scheduled TestsXR Chest 2 Views (PA & Lateral) 07/23/21 [facility] Evaluation + Plan note Future Appointments Appointment Date:05/12/2022 01:00:00 PM Scheduled Provider:MIGEL GREENE DO Location:[facility] Appointment Type:PC OV Follow Up Future Scheduled TestsXR Chest 2 Views (PA & Lateral) 07/23/21 [facility] Evaluation + Plan note Future Appointments Appointment Date:06/13/2023 04:00:00 PM Scheduled Provider:MIGEL GREENE DO Location:[facility] Appointment Type:PC OV Appointment Date:10/14/2023 02:00:00 PM Scheduled Provider:MIGEL GREENE DO Location:[facility] Appointment Type:PC OV Future Scheduled TestsBasic Metabolic Panel 04/19/23Ferritin 04/19/23Vitamin B12 Level 04/19/23Iron Studies 04/19/23Microalbumin Level Urine 05/12/22CT Thorax w/o Contrast 01/17/23 [facility] Evaluation + Plan note Future Appointments Appointment Date:07/11/2023 01:00:00 PM Scheduled Provider:MIGEL GREENE DO Location:[facility] Appointment Type:PC OV Appointment Date:10/14/2023 02:00:00 PM Scheduled Provider:MIGEL GREENE DO Location:[facility] Appointment Type:PC OV Future Scheduled TestsCT Thorax w/o Contrast 01/17/23 [facility] Evaluation + Plan note Future Appointments Appointment Date:11/15/2023 03:30:00 PM Scheduled Provider:MIGEL GREENE DO Location:[facility] Appointment Type:PC OV Future Scheduled TestsVitamin B12 Level 07/11/23Complete Blood Count 07/11/23CT Thorax w/o Contrast 01/17/23 [facility] Evaluation + Plan note Future Appointments Appointment Date:01/31/2024 03:00:00 PM Scheduled Provider:MIGEL GREENE DO Location:[facility] Appointment Type:PC OV Future Scheduled TestsVitamin B12 Level 07/11/23Complete Blood Count 07/11/23 [facility] Evaluation + Plan note Future Appointments Appointment Date:12/05/2024 02:45:00 PM Scheduled Provider:MIGEL GREENE DO Location:[facility] Appointment Type:PC OV Future Scheduled TestsLipoprotein (a) 08/01/24Apolipoprotein B 08/01/24PET/CT Initial Staging Tumor Skull 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 05/01/24 [facility] Evaluation + Plan note Future Appointments Appointment Date:12/05/2024 02:45:00 PM Scheduled Provider:MIGEL GREENE DO Location:[facility] Appointment Type:PC OV Future Scheduled TestsLipoprotein (a) 08/01/24Apolipoprotein B 08/01/24 [facility] Evaluation note Diagnosis Onset Date Lung nodule acute Nicotine dependence, cigaret jennyfer, uncomplicated acute [facility] Work Phone: Evaluation note* Diagnosis Onset Date Resolution Status Lung nodule acute Nicotine dependence, cigarettes, uncomplicated acute Lung nodule acute Nicotine dependence, cigarettes, uncomplicated acute Chronic hypoxemic respiratory failure chronic COPD (chronic obstructive pulmonary disease) chronic [facility] Work Phone: Evaluation noteNo assessment information available [facility] Work Phone: Hospital course Narrative No data available for this section [facility] Hospital Discharge instructions No data available for this section [facility] Progress note No data available for this section [facility] Chief Complaint and Reason for Visit Chief Complaint COPD NICOTINE DEPENDENCE NICOTINE DEPENDENCE NICOTINE DEPENDENCE NICOTINE DEPENDENCE Reason for Visit Lung nodule Nicotine dependence, cigarettes, uncomplicated Chief Complaint COPD NICOTINE DEPENDENCE NICOTINE DEPENDENCE NICOTINE DEPENDENCE NICOTINE DEPENDENCE 4-6 WK FU Reason for Visit Lung nodule Nicotine dependence, cigarettes, uncomplicated Lung nodule Nicotine dependence, cigarettes, uncomplicated Chronic hypoxemic respiratory failure COPD (chronic obstructive pulmonary disease) Chief Complaint LUNG NODULE Summary Purpose Family History No Family History Records Found Advance Directives No Advanced Directives Records FoundNo Advanced Directives Records FoundNo Advanced Directives Records FoundNo Advanced Directives Records Found Additional Source Comments Care Team (unrecognized sect ion and content) Team Status: Active Member Role Status Dates Dr. Migel Greene DO Primary Care Provider Active Team Status: Inactive Member Role Status Dates Dr. Yinka Villeda DO Attending Provider, Referring Pro vider Active Team Status: Active Member Role Status Dates Dr. Migel Greene DO Primary Care Provider Active Dr. Yinka Villeda DO Referring Provider, Other Provide r Active Dr. Luigi Riggins MD Attending Provider Active Team Status: Active Member Role Status Dates Dr. Migel Greene DO Primary Care Provider Active Dr. Yinka Villeda DO Attending Provider, Other Provide r Active Team Status: Active Member Role Status Dates Dr. Migel Greene DO Primary Care Provider Active Dr. Yinka Villeda , DO Attending Provider Active Team Status: Inactive Member Role Status Dates Dr. Migel Greene DO Primary Care Provider Active Dr. Yinka Villeda DO Attending Provider Active Team Status: Inactive Member Role Status Dates Dr. Migel Greene DO Primary Care Provider, Referrin g Provider Active Dr. Yinka Villeda DO Attending Provider Active Team Status: Inactive Member Role Status Dates Dr. Migel Greene DO Primary Care Provider Active Dr. Yinka Villeda DO Attending Provider, Referring Pro vider Active Care Team (unrecognized sect ion and content) Care Team Personnel Name: MIGEL GREENE DO Position: P4 Physician - Primary Care Member Role: Primary Care Physician Address: Address: [address] [place] [address]- [place] Goals (unrecognized section and content) Goals may be documented in a n alternate section (unrecognized sect ion and content) No Status Records FoundNo Status Records FoundNo Status Records FoundNo Status Records Found INFORMATION SOURCE (unrecogn ized section and content) DATE CREATED AUTHOR 11/10/2023 [facility] DATE CREATED AUTHOR AUTHOR'S ORGANIZ ATION 11/18/2023 [facility] DATE CREATED AUTHOR AUTHOR'S ORGANIZ ATION 09/28/2024 [facility] DATE CREATED AUTHOR AUTHOR'S ORGANIZ ATION 10/06/2024 [facility] FOR RECORDS PERTAINING TO PATIENTS WHO ARE OR HAVE BEEN ENROLLED IN A CHEMICAL DEPENDENCY/SUBSTANCEABUSE PROGRAM, SOME INFORMATION MAY BE OMITTED. This clinical summary was aggregated from multiple sources. Caution should be exercised in using it in the provision of clinical care. This summary normalizes information from multiple sources, and as a consequence, information in this document may materially change the coding, format and clinical context of patient data. In addition, data may be omitted in some cases. CLINICAL DECISIONS SHOULD BE BASED ON THE PRIMARY CLINICAL RECORDS. [employer] provides no warranty or guarantee of the accuracy or completeness of information in this document.
== END | disposition home or self-care (01) ==
DX: R91.1 Solitary pulmonary nodule (principal); R93.89 Abnormal findings on diagnostic imaging of other specified body structures
CPT/HCPCS: 78815; A9552